=== PATIENT | male | born 1970 | race Caucasian/White ===

== ENCOUNTER 2024-02-27 14:02 | Emergency (ER) | payer OTHER ==
[~2024-02-27] VITALS: Ht 182.9 cm; Wt 81.7 kg
[2024-02-27] MEDS ORDERED: LORazepam 2 MG/ML 1ML Injection IV ONE ×2 (14:30→17:40)
[2024-02-27 15:27] LABS: Albumin, Blood 3.6 g/dL (3.4-5.0); Bilirubin, Total 0.8 mg/dL (0.1-1.0); Bun/Creatinine Ratio 12.4 (12.0-20.0); Calcium, Blood 9.1 mg/dL (8.5-10.1); Creatinine, Blood 1.13 mg/dL (0.60-1.20); Globulin, Blood 3.5 g/dL (2.2-4.0); Potassium, Blood 4.7 mmol/L (3.5-5.5); Total Protein, Blood 7.1 g/dL (6.4-8.2)
[2024-02-27] MEDS ORDERED: Ampicillin Sod/Sulbactam Sod 3 GM in NS 100 ML IV ONE (15:45)
[2024-02-27 15:57] LABS: BASOPHILS ABSOLUTE AUTO 0.07 K/mm3 (0.00-0.23); BASOPHILS PERCENT AUTO 1 % (0-2); EOSINOPHILS ABSOLUTE AUTO 0.02 K/mm3 (0.00-0.68); EOSINOPHILS PERCENT AUTO 0 % (0-6); Hematocrit 49.8 % (37.0-53.0); Hemoglobin 16.9 g/dL (13.5-17.5); IMMATURE GRAN ABSOLUTE AUTO 0.03 K/mm3 (0.00-0.10); IMMATURE GRAN PERCENT AUTO 0 % (0-1); LYMPHOCYTES ABSOLUTE AUTO 0.61 K/mm3 (0.84-5.20); LYMPHOCYTES PERCENT AUTO 5 % (21-46); MONOCYTES ABSOLUTE AUTO 0.66 K/mm3 (0.16-1.47); MONOCYTES PERCENT AUTO 6 % (4-13); Mean Corpuscular HGB 31.8 pg (26.0-34.0); Mean Corpuscular HGB Conc 33.9 g/dL (31.5-36.5); Mean Corpuscular Volume 94 fL (80-100); NEUTROPHILS ABSOLUTE AUTO 10.24 K/mm3 (1.96-9.15); NEUTROPHILS PERCENT AUTO 88 % (41-73); Platelet Count 262 K/mm3 (150-400); RDW Coefficient Variation 15.8 % (11.7-14.2); RDW Standard Deviation 54.1 fL (35.1-46.3); Red Blood Cell Count 5.31 M/mm3 (4.30-5.90); White Blood Cell Count 11.63 K/mm3 (4.00-11.30)
[2024-02-27 16:09] LABS: International Normalized Ratio 1.02; Prothrombin Time Results 10.9 Sec (9.7-11.5)
[2024-02-27] MEDS ORDERED: Acetaminophen 500 MG Tab PO ONE (16:55)
[2024-02-27] MEDS ORDERED: FentaNYL Citrate 50 MCG/ML 2 ML Injection IV ONE (16:55)
[2024-02-27] MEDS ORDERED: AMOCLA875 PO (18:32)
[2024-02-27] MEDS ORDERED: EUTHYROX50 MCG (19:45)
[2024-02-27] MEDS ORDERED: Ketorolac Tromethamine 15mg Vial IV ONE (20:10)
== END 2024-02-27 21:47 | disposition home or self-care (01) ==
LOC: ER 14:02 → EDSEX 14:02 → ER 21:47
PROVIDERS: Student in an Organized Health Care Education/Training Program
DX: S02.40FA Zygomatic fracture, left side, initial encounter for closed fracture (principal); S02.40DA Maxillary fracture, left side, initial encounter for closed fracture; S02.842A Fracture of lateral orbital wall, left side, initial encounter for closed fracture; S02.32XA Fracture of orbital floor, left side, initial encounter for closed fracture; S02.632A Fracture of coronoid process of left mandible, initial encounter for closed fracture; F10.129 Alcohol abuse with intoxication, unspecified; I10 Essential (primary) hypertension; Z88.5 Allergy status to narcotic agent; Y04.8XXA Assault by other bodily force, initial encounter
CPT/HCPCS: 70450; 70486; 72125; 80053; 80320; 85025; 85610; 85730; 96365; 96375; 96376; 99284-25; A9270; J0295; J1885; J2060; J3010

== ENCOUNTER 2024-03-01 17:24 | Emergency (ER) | payer OTHER ==
[~2024-03-01] VITALS: Ht 182.9 cm; Wt 95.2 kg
[~2024-03-01 17:24] MED LIST: AMOCLA875 PO; EUTHYROX50 MCG
[2024-03-01] MEDS ORDERED: Fluorescein Sod 1MG Opth Strips LEFTEYE ONE (19:40)
[2024-03-01] MEDS ORDERED: Ketorolac Tromethamine 10 MG Tab PO ONE (20:00)
== END 2024-03-01 20:44 | disposition home or self-care (01) ==
LOC: ER 17:24
DX: H53.8 Other visual disturbances (principal); F17.210 Nicotine dependence, cigarettes, uncomplicated; Z79.899 Other long term (current) drug therapy; Z88.5 Allergy status to narcotic agent
CPT/HCPCS: 99284; A9270

== ENCOUNTER 2024-03-02 05:28 | Inpatient (IN) | payer OTHER ==
[2024-03-02] VITALS (16 sets, daily range): BP systolic 145–173; BP diastolic 83–119
[~2024-03-02] VITALS: Ht 182.9 cm; Wt 62.4 kg
[2024-03-02] MEDS ORDERED: NS 1,000 ML IV SCH ×2 (07:45→11:55)
[2024-03-02] MEDS ORDERED: Mag Hydrox/AL Hydrox/Simeth 30 ML UDC PO ONE (07:45)
[2024-03-02] MEDS ORDERED: Famotidine 10 MG/ML 2ML Vial IV ONE (07:45)
[2024-03-02] MEDS ORDERED: Ketorolac Tromethamine 30mg Vial IV ONE (07:45)
[2024-03-02] MEDS ORDERED: Ondansetron HCl 2 MG / ML 2ML Vial IV ONE (07:45)
[2024-03-02] MEDS ORDERED: Folic Acid 1 MG TAB PO ONE (07:50)
[2024-03-02] MEDS ORDERED: Thiamine HCl 100 MG Tab PO ONE (07:50)
[2024-03-02 09:21] LABS: BASOPHILS ABSOLUTE AUTO 0.06 K/mm3 (0.00-0.23); BASOPHILS PERCENT AUTO 0 % (0-2); EOSINOPHILS ABSOLUTE AUTO 0.01 K/mm3 (0.00-0.68); EOSINOPHILS PERCENT AUTO 0 % (0-6); Hematocrit 44.9 % (37.0-53.0); Hemoglobin 15.8 g/dL (13.5-17.5); IMMATURE GRAN ABSOLUTE AUTO 0.05 K/mm3 (0.00-0.10); IMMATURE GRAN PERCENT AUTO 0 % (0-1); LYMPHOCYTES ABSOLUTE AUTO 1.17 K/mm3 (0.84-5.20); LYMPHOCYTES PERCENT AUTO 8 % (21-46); MONOCYTES ABSOLUTE AUTO 1.66 K/mm3 (0.16-1.47); MONOCYTES PERCENT AUTO 11 % (4-13); Mean Corpuscular HGB 32.3 pg (26.0-34.0); Mean Corpuscular HGB Conc 35.2 g/dL (31.5-36.5); Mean Corpuscular Volume 92 fL (80-100); Mean Platelet Volume 9.4 fL (9.1-12.4); NEUTROPHILS ABSOLUTE AUTO 11.81 K/mm3 (1.96-9.15); NEUTROPHILS PERCENT AUTO 80 % (41-73); Platelet Count 258 K/mm3 (150-400); RDW Coefficient Variation 15.8 % (11.7-14.2); RDW Standard Deviation 53.1 fL (35.1-46.3); Red Blood Cell Count 4.89 M/mm3 (4.30-5.90); White Blood Cell Count 14.76 K/mm3 (4.00-11.30)
[2024-03-02 09:59] LABS: Albumin, Blood 3.9 g/dL (3.4-5.0); Albumin/Globulin Ratio 1.1 (0.8-1.8); Bun/Creatinine Ratio 19.3 (12.0-20.0); Calcium, Blood 9.7 mg/dL (8.5-10.1); Creatinine, Blood 1.09 mg/dL (0.60-1.20); Globulin, Blood 3.4 g/dL (2.2-4.0); Magnesium, Blood 2.2 mg/dL (1.6-2.4); Potassium, Blood 4.2 mmol/L (3.5-5.5); Total Protein, Blood 7.3 g/dL (6.4-8.2)
[2024-03-02] MEDS ORDERED: Aspirin 81 MG Chew PO ONE (10:15)
[2024-03-02] MEDS ORDERED: Nitroglycerin 1 INCH/GM PKT TOP ONE (10:25)
[2024-03-02] MEDS ORDERED: Diazepam 5 MG / ML 2ML SYR IV ONE (10:25)
[2024-03-02] MEDS ORDERED: Buprenorphine HCL/Naloxone HCL 8MG-2MG Tab SL ONE (10:25)
[2024-03-02 11:15] LABS: Anti-Xa UFH, PHA Monitoring <0.10 IU/mL; Prothrombin Time Results 10.7 Sec (9.7-11.5)
[2024-03-02] MEDS ORDERED: Heparin Sodium 5000 Units/ML 1ML MDV IV ONE (11:30)
[2024-03-02] MEDS ORDERED: Heparin Sodium,Porcine/0.5 NS 500 ML IV SCH (11:30)
[2024-03-02] MEDS ORDERED: FLU VACC TS2024-25(6MOS UP)/PF 45 MCG/0.5 ML SYRINGE IM PRN (11:50)
[2024-03-02] MEDS ORDERED: Magnesium Hydroxide Conc 10 ML UDC PO PRN (11:50)
[2024-03-02] MEDS ORDERED: Bisacodyl 10 MG Supp PR PRN (11:50)
[2024-03-02] MEDS ORDERED: LORazepam 2 MG/ML 1ML Injection IV PRN ×5 (12:00→14:25)
[2024-03-02] MEDS ORDERED: Folic Acid 1 MG in NS 50 ML IV SCH (12:13)
[2024-03-02] MEDS ORDERED: Thiamine HCl 100 MG in NS 50 ML IV SCH (12:13)
[2024-03-02] MEDS ORDERED: Pantoprazole Sodium 40 MG Injection IV SCH (13:13)
[2024-03-02 13:41] LABS: U Amphetamine Screen Not Detected; U Barbituate Screen DETECTED; U Benzodiazapine Screen DETECTED; U Buprenorphine Screen DETECTED; U Cannabinoids Screen Not Detected; U Cocaine Screen Not Detected; U Methadone Screen Not Detected; U Methamphetamine Screen Not Detected; U Opiates Screen Not Detected; U Oxycodone Screen Not Detected; U Phencyclidine Screen Not Detected
[2024-03-02] MEDS ORDERED: Buprenorphine HCL/Naloxone HCL 8MG-2MG Tab SL SCH (14:00)
[2024-03-02] MEDS ORDERED: Thiamine HCl 100 MG Tab PO SCH (16:35)
[2024-03-02] MEDS ORDERED: Folic Acid 1 MG TAB PO SCH (16:35)
--- NOTE | 2024-03-02 18:29 | NUR ---
SHIFT ASSESSMENT Pt to floor from ED with 1:1. Heparin gtt continued. Medicated per MAY. Placed on 2L NC.
--- NOTE | 2024-03-02 20:57 | NUR ---
ASSUMED CARE AT APPROX 1910 PATIENT IS ALERT AND ORIENTED X3, UNSURE OF DATE. CIWA 15 DUE TO AGITATION, TREMORS AND SOME CONFUSION. MEDICATED PER EMAR FOR CIWA. SP02 96% ON 2L VIA NC WHILE SLEEPING. DENIES SOB. LS CLEAR. HR ST 105, BP HYPERTENSIVE AT TIMES. SYSTOLIC BPs 150s-160s. DENIES CP/PRESSURE. HEPARIN DRIP INFUSING. PATIENT INDEPENDENT WITH REPOSITIONING. SITTER AT BEDSIDE DUE TO PATIENT BEING IMPULSIVE AND A FALL RISK. SEE SHIFT ASSESSMENT FOR MORE INFORMATION
[2024-03-02] MEDS ORDERED: Sennosides 8.6 MG Tab PO SCH (21:00)
[2024-03-02] MEDS ORDERED: Docusate Sodium 100 MG Cap PO SCH (21:00)
[2024-03-03] VITALS (43 sets, daily range): BP systolic 91–191; BP diastolic 59–132
[2024-03-03 02:08] LABS: BASOPHILS ABSOLUTE AUTO 0.06 K/mm3 (0.00-0.23); BASOPHILS PERCENT AUTO 1 % (0-2); EOSINOPHILS ABSOLUTE AUTO 0.05 K/mm3 (0.00-0.68); EOSINOPHILS PERCENT AUTO 0 % (0-6); Hematocrit 41.5 % (37.0-53.0); Hemoglobin 14.2 g/dL (13.5-17.5); IMMATURE GRAN ABSOLUTE AUTO 0.05 K/mm3 (0.00-0.10); IMMATURE GRAN PERCENT AUTO 0 % (0-1); LYMPHOCYTES ABSOLUTE AUTO 0.94 K/mm3 (0.84-5.20); LYMPHOCYTES PERCENT AUTO 8 % (21-46); MONOCYTES ABSOLUTE AUTO 1.19 K/mm3 (0.16-1.47); MONOCYTES PERCENT AUTO 11 % (4-13); Mean Corpuscular HGB 32.6 pg (26.0-34.0); Mean Corpuscular HGB Conc 34.2 g/dL (31.5-36.5); Mean Corpuscular Volume 95 fL (80-100); Mean Platelet Volume 9.3 fL (9.1-12.4); NEUTROPHILS ABSOLUTE AUTO 8.99 K/mm3 (1.96-9.15); NEUTROPHILS PERCENT AUTO 80 % (41-73); Platelet Count 166 K/mm3 (150-400); RDW Coefficient Variation 15.7 % (11.7-14.2); RDW Standard Deviation 55.3 fL (35.1-46.3); Red Blood Cell Count 4.36 M/mm3 (4.30-5.90); White Blood Cell Count 11.28 K/mm3 (4.00-11.30)
[2024-03-03 02:32] LABS: Alanine Aminotransfer (ALT/SGP 198 U/L (12-78); Albumin, Blood 3.1 g/dL (3.4-5.0); Alk Phos 84 U/L (50-136); Anion Gap 9 mmol/L (3-11); Aspartate Aminotrans (AST/SGOT 219 U/L (12-37); Bilirubin, Total 1.6 mg/dL (0.1-1.0); Blood Urea Nitrogen 20 mg/dL (8-24); Bun/Creatinine Ratio 18.9 (12.0-20.0); CHOL/HDL RATIO 2.3; CO2, Blood 30 mmol/L (21-32); Calcium, Blood 8.7 mg/dL (8.5-10.1); Chloride, Blood 102 mmol/L (98-108); Cholesterol 138 mg/dL (50-200); Creatinine, Blood 1.06 mg/dL (0.60-1.20); Globulin, Blood 3.1 g/dL (2.2-4.0); Glomerular Filtration Rate 83 (60-); Glucose, Blood 106 mg/dL (70-99); HDL Cholesterol 59 mg/dL (>39); LDL/HDL RATIO 1.1; Low Density Lipoprotein Chol 62 mg/dL (0-110); Sodium, Blood 137 mmol/L (136-145); Total Protein, Blood 6.2 g/dL (6.4-8.2); Triglycerides 84 mg/dL (30-160); Very Low Density Lipoprot Chol 16 mg/dL (6-32)
[2024-03-03] MEDS ORDERED: dexmedeTOMIDine 100 ML IV SCH (03:05)
[2024-03-03] MEDS ORDERED: Dose Adjust by Pharmacy XX STA ×2 (03:12→10:00)
--- NOTE | 2024-03-03 06:23 | NUR ---
SHIFT SUMMARY PATIENT GIVEN ATIVAN FREQUENTLY THROUGH THE NIGHT, CIWA WOULD REMAIN AROUND 15, PRECEDEX STARTED. PATIENT NOW RESTING IN BED, CIWA 7. SP02 98% ON 2L VIA NC, LS CLEAR. HR SR 80s, BP STABLE. SYSTOLIC NOW 140s. PATIENT USES URINAL STANDING AT BEDSIDE WITH SBA. INDEPENDENT WITH REPOSITIONING. REMAINS IMPULSIVE AT TIMES, SITTER REMAINS AT BEDSIDE. CALL LIGHT IN REACH
[2024-03-03] MEDS ORDERED: DULoxetine HCL 60 MG Capsule DR PO SCH (09:00)
[2024-03-03] MEDS ORDERED: Nicotine 21 MG PATCH TOP SCH (09:00)
[2024-03-03] MEDS ORDERED: Peg 400/Hypromellose/Glycerin 15 DROP/ML BTL LEFTEYE PRN (14:50)
--- NOTE | 2024-03-03 18:38 | NUR ---
BELONGINGS NOTE Called [facility] in [place] per patient request. His belongings are there. Spoke with the front edger employee, explained that the patient will be in the hospital for the next several days. [facility] agreed to place the patients belongings at the desk and [facility] can collect it when he is discharged. Patient was made aware.
--- NOTE | 2024-03-03 18:41 | NUR ---
SHIFT SUMMARY Pt very cooperative this shift, CIWAs in the 20s all shift, ativan working well, precedex increased. Had to straight cath x1 for 950cc urine. heparin gtt discontinued.
--- NOTE | 2024-03-03 20:22 | NUR ---
ASSUMED CARE AT 1900 PATIENT REPSONDS TO VERBAL STIMULI, ORIENTED X2-3. CIWA 15 WHEN AWAKE AND STIMULATED. CIWA 8-9 WHEN RESTING. PRECEDEX INFUSING AND WILL MEDICATE WITH ATIVAN PER EMAR. SP02 98% ON 2L VIA NC. HR SR 70s, BP STABLE. DENIES CP/PRESSURE. CALL LIGHT IN REACH
[2024-03-04] VITALS (28 sets, daily range): BP systolic 119–147; BP diastolic 73–115
[2024-03-04 03:40] LABS: BASOPHILS ABSOLUTE AUTO 0.03 K/mm3 (0.00-0.23); BASOPHILS PERCENT AUTO 0 % (0-2); EOSINOPHILS ABSOLUTE AUTO 0.08 K/mm3 (0.00-0.68); EOSINOPHILS PERCENT AUTO 1 % (0-6); Hematocrit 41.3 % (37.0-53.0); Hemoglobin 14.1 g/dL (13.5-17.5); IMMATURE GRAN ABSOLUTE AUTO 0.07 K/mm3 (0.00-0.10); IMMATURE GRAN PERCENT AUTO 1 % (0-1); LYMPHOCYTES ABSOLUTE AUTO 0.82 K/mm3 (0.84-5.20); LYMPHOCYTES PERCENT AUTO 6 % (21-46); MONOCYTES ABSOLUTE AUTO 1.12 K/mm3 (0.16-1.47); MONOCYTES PERCENT AUTO 9 % (4-13); Mean Corpuscular HGB 32.8 pg (26.0-34.0); Mean Corpuscular HGB Conc 34.1 g/dL (31.5-36.5); Mean Corpuscular Volume 96 fL (80-100); Mean Platelet Volume 10.1 fL (9.1-12.4); NEUTROPHILS ABSOLUTE AUTO 10.88 K/mm3 (1.96-9.15); NEUTROPHILS PERCENT AUTO 84 % (41-73); NRBC ABSOLUTE 0.02 K/mm3 (0.00-0.02); NRBC Auto 0.2 /100 WBC (0.0-0.2); Platelet Count 162 K/mm3 (150-400); RDW Standard Deviation 52.7 fL (35.1-46.3)
[2024-03-04 04:03] LABS: Albumin, Blood 2.9 g/dL (3.4-5.0); Bilirubin, Total 1.3 mg/dL (0.1-1.0); Bun/Creatinine Ratio 27.8 (12.0-20.0); Calcium, Blood 9.2 mg/dL (8.5-10.1); Creatinine, Blood 0.83 mg/dL (0.60-1.20); Potassium, Blood 4.2 mmol/L (3.5-5.5); Total Protein, Blood 5.9 g/dL (6.4-8.2)
--- NOTE | 2024-03-04 06:15 | NUR ---
SHIFT SUMMARY PATIENT REMAINS ALERT AND ORIENTED X 2-3. CIWA RANGES FROM 7-15, PRECEDEX INFUSING AND ATIVAN GIVEN PER EMAR. SP02 98% ON 2L VIA NC. HR SR 70s, BP STABLE. PATIENT MADE MULTIPLE ATTEMPT TO URINATE BUT UNABLE, BLADDER SCAN SHOWED >500. VOSS CATHETER PLACED. PATIENT INDEPENDENT WITH REPOSITIONING. CALL LIGHT IN REACH AND BED ALARM ON
--- NOTE | 2024-03-04 10:29 | NUR ---
am note this rn assumed care at 0700. vital signs stable. tele on sius rhythm 60-70s. spo2 >95% on room air. precedex drip at 0.8mcg/kg/hr. patient ciwa currently 7. patient is alert and oriented to person, place, and self. patient asked how he got here and why he was here this rn explained to patient while md was in the room. see shift assessment for further detials. plan to continue medication for withdrawals.
[2024-03-04] MEDS ORDERED: Enoxaparin 40 MG/0.4 ML SYR SC SCH (10:54)
[2024-03-04] MEDS ORDERED: BUPRENORPHINE-1 EACH SL (10:57)
[2024-03-04] MEDS ORDERED: TRAZ100 PO (10:58)
[2024-03-04] MEDS ORDERED: Hydroxyzine HCl50 MG PO (11:18)
[2024-03-04] MEDS ORDERED: ACAMPROSATE CA333 MG PO (11:19)
[2024-03-04] MEDS ORDERED: FOLI1 PO (11:20)
[2024-03-04] MEDS ORDERED: CATAPRES0.1 MG PO (11:20)
[2024-03-04] MEDS ORDERED: B-1100 M1 PO (11:20)
[2024-03-04] MEDS ORDERED: CARVEDILOL25 M9 PO (11:21)
[2024-03-04] MEDS ORDERED: QUETIAPINE FUM10011 PO (11:21)
[2024-03-04] MEDS ORDERED: DULOXETINE HCL60 M1 PO (11:22)
[2024-03-04] MEDS ORDERED: GABAPENTIN600 MG PO (11:23)
[2024-03-04] MEDS ORDERED: LISI20 PO (11:23)
[2024-03-04] MEDS ORDERED: Aspir 8181 MG PO (11:24)
[2024-03-04] MEDS ORDERED: ZOLOFT50 MG PO (11:24)
[2024-03-04] MEDS ORDERED: OMEP20ER PO (11:26)
[2024-03-04] MEDS ORDERED: LEVOTHYROXINE112 M18 PO (11:27)
[2024-03-04] MEDS ORDERED: Acetaminophen 325 MG TABLET PO PRN (16:40)
[2024-03-04] MEDS ORDERED: Ibuprofen 400 MG Tab PO PRN (16:40)
--- NOTE | 2024-03-04 18:03 | NUR ---
shift summary patient vitals remain stable. patient remains on precedex and is currently at 0.6mcg/kg/hr. patient ciwa 5-11 throughout the shift. this rn noticed patient tremors tend to increase with activity. no acute changes throughout the shift. patient complained of neck pain and received tylenol for pain and upon reassessment pain free. patient is worried about having a bowel movement and this rn gave patient purne juice and coffee, plus oral medication. patient still has not had success. plan remains up to date.
[2024-03-04] MEDS ORDERED: QUEtiapine Fumarate 200 MG Tab PO SCH (21:00)
--- NOTE | 2024-03-04 21:23 | NUR ---
ASSUMED CARE AT 1900 PATIENT IS ALERT AND ORIENTED X3, UNABLE TO STATE DATE. CIWA 11, DUE TO TREMORS AND SOME ANXIETY. MEDICATED PER EMAR AND PRECEDEX INFUSING. SP02 97% ON RA, DENIES SOB. HR SR 60s, BP STABLE. DENIES CP/PRESSURE. VOSS PATENT AND DRAINING TO GRAVITY. INDEPENDENT WITH REPOSITIONING. CALL LIGHT IN REACH
[2024-03-05] VITALS (52 sets, daily range): BP systolic 97–151; BP diastolic 66–106
[2024-03-05 04:08] LABS: BASOPHILS ABSOLUTE AUTO 0.01 K/mm3 (0.00-0.23); BASOPHILS PERCENT AUTO 0 % (0-2); EOSINOPHILS ABSOLUTE AUTO 0.15 K/mm3 (0.00-0.68); EOSINOPHILS PERCENT AUTO 1 % (0-6); Hematocrit 38.5 % (37.0-53.0); Hemoglobin 13.2 g/dL (13.5-17.5); IMMATURE GRAN ABSOLUTE AUTO 0.07 K/mm3 (0.00-0.10); IMMATURE GRAN PERCENT AUTO 1 % (0-1); LYMPHOCYTES ABSOLUTE AUTO 0.77 K/mm3 (0.84-5.20); LYMPHOCYTES PERCENT AUTO 7 % (21-46); MONOCYTES ABSOLUTE AUTO 1.04 K/mm3 (0.16-1.47); MONOCYTES PERCENT AUTO 10 % (4-13); Mean Corpuscular HGB 32.3 pg (26.0-34.0); Mean Corpuscular HGB Conc 34.3 g/dL (31.5-36.5); Mean Corpuscular Volume 94 fL (80-100); Mean Platelet Volume 10.4 fL (9.1-12.4); NEUTROPHILS ABSOLUTE AUTO 8.61 K/mm3 (1.96-9.15); NEUTROPHILS PERCENT AUTO 81 % (41-73); NRBC ABSOLUTE 0.02 K/mm3 (0.00-0.02); NRBC Auto 0.2 /100 WBC (0.0-0.2); Platelet Count 163 K/mm3 (150-400); RDW Standard Deviation 51.1 fL (35.1-46.3); Red Blood Cell Count 4.09 M/mm3 (4.30-5.90); White Blood Cell Count 10.65 K/mm3 (4.00-11.30)
[2024-03-05 04:40] LABS: Albumin, Blood 2.6 g/dL (3.4-5.0); Albumin/Globulin Ratio 0.8 (0.8-1.8); Bilirubin, Total 0.9 mg/dL (0.1-1.0); Bun/Creatinine Ratio 23.6 (12.0-20.0); Calcium, Blood 9.3 mg/dL (8.5-10.1); Creatinine, Blood 0.76 mg/dL (0.60-1.20); Globulin, Blood 3.1 g/dL (2.2-4.0); Potassium, Blood 3.8 mmol/L (3.5-5.5); Total Protein, Blood 5.7 g/dL (6.4-8.2)
[2024-03-05] MEDS ORDERED: Levothyroxine Sodium 0.112 MG Tab PO SCH (06:00)
[2024-03-05] MEDS ORDERED: Pantoprazole Sodium 40 MG Tab PO SCH (06:00)
--- NOTE | 2024-03-05 06:28 | NUR ---
SHIFT SUMMARY PATIENT REMAINS ON PRECEDEX WITH PRN ATIVAN FOR CIWA UP TO 15. ORIENTED X 2-3, NOW STARTING TO HAVE SOME HALLUCINATIONS SEEING THINGS THAT ARE NOT IN THE ROOM. SP02 95% ON RA. HR SR 60s, BP STABLE. PATIENT DENIES CP/PRESSURE. VOSS PATENT AND DRAINING TO GRAVITY. CALL LIGHT IN REACH
[2024-03-05] MEDS ORDERED: Aspirin 81 MG TabEC PO SCH (09:00)
--- NOTE | 2024-03-05 09:46 | NUR ---
CARE ASSUMPTION PT A&OX3. ABLE TO STATE PLACE, WHY HES HERE. UNSURE OF DATE. AFEBRILE. SP02>90% ON RA. TELEMETRY SHOWS NSR, HR 70'S. VOSS CATHETER DRAINING DARK YELLOW URINE TO GRAVITY. PT C/O 08/10 SHOULDER PAIN. MEDICATED W/ TYLENOL PER EMAR. MD DIA IN ROOM, DISCUSSED PAIN MANAGEMENT. CIWA 9, MEDICATED W/ ATIVAN PER EMAR. CALL LIGHT IN REACH.
[2024-03-05] MEDS ORDERED: TraMADol HCl 50 MG Tab PO PRN (11:00)
--- NOTE | 2024-03-05 16:37 | NUR ---
SHIFT SUMMARY NO ACUTE CHANGES SINCE CARE ASSUMPTION. PT COOPERATIVE WITH CARE. PRECEDEX REMAINS INFUSING AT 0.8, RATE UNCHANGED. CIWAS RANGE BETWEEN 6-11. ATIVAN PER EMAR AND CIWA. VOSS CATHETER DRAINING TO GRAVITY, ENCOURAGED FLUID INTAKE T/O SHIFT. NO BM THIS SHIFT. PASTORAL CARE IN ROOM THIS AFTERNOON. CALL LIGHT IN REACH.
--- NOTE | 2024-03-05 16:56 | NUR ---
Pt. is drowsy, but welcomes my visit. Pt. displayed evidence of pleasanty withdrawing, so a short life review was able to take place. Pt. verbalized that home for him was in [place], [place]. Listen with empathy and a calming presence. Pt. welcomed prayer. Prayed for Pt. Pt. verbalized gratitude for the spiritual care visit.
[2024-03-05 19:28] LABS: HEPATITIS A ANTIBODY, IGM Negative (Negative); HEPATITIS B CORE ANTIBODY, IGM Negative (Negative); HEPATITIS B SURFACE ANTIGEN Negative (Negative); HEPATITIS C AB CIA INTERP Negative (Negative); HEPATITIS C ANTIBODY CIA INDEX 0.02 IV
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
[2024-03-06] VITALS (34 sets, daily range): BP systolic 104–173; BP diastolic 74–116
[2024-03-06] MEDS ORDERED: PHENobarbital Sodium 65MG / ML 1ML Vial IV PRN (01:15)
[2024-03-06 03:40] LABS: BASOPHILS ABSOLUTE AUTO 0.04 K/mm3 (0.00-0.23); BASOPHILS PERCENT AUTO 0 % (0-2); EOSINOPHILS ABSOLUTE AUTO 0.22 K/mm3 (0.00-0.68); EOSINOPHILS PERCENT AUTO 2 % (0-6); Hematocrit 37.8 % (37.0-53.0); Hemoglobin 13.2 g/dL (13.5-17.5); IMMATURE GRAN ABSOLUTE AUTO 0.05 K/mm3 (0.00-0.10); IMMATURE GRAN PERCENT AUTO 1 % (0-1); LYMPHOCYTES ABSOLUTE AUTO 0.81 K/mm3 (0.84-5.20); LYMPHOCYTES PERCENT AUTO 8 % (21-46); MONOCYTES ABSOLUTE AUTO 0.98 K/mm3 (0.16-1.47); MONOCYTES PERCENT AUTO 10 % (4-13); Mean Corpuscular HGB 33.3 pg (26.0-34.0); Mean Corpuscular HGB Conc 34.9 g/dL (31.5-36.5); Mean Corpuscular Volume 96 fL (80-100); Mean Platelet Volume 9.5 fL (9.1-12.4); NEUTROPHILS ABSOLUTE AUTO 7.59 K/mm3 (1.96-9.15); NEUTROPHILS PERCENT AUTO 78 % (41-73); Platelet Count 209 K/mm3 (150-400); RDW Standard Deviation 52.1 fL (35.1-46.3); Red Blood Cell Count 3.96 M/mm3 (4.30-5.90); White Blood Cell Count 9.69 K/mm3 (4.00-11.30)
[2024-03-06 04:20] LABS: Albumin, Blood 2.7 g/dL (3.4-5.0); Albumin/Globulin Ratio 0.8 (0.8-1.8); Bilirubin, Total 0.7 mg/dL (0.1-1.0); Bun/Creatinine Ratio 21.1 (12.0-20.0); Calcium, Blood 9.3 mg/dL (8.5-10.1); Creatinine, Blood 0.95 mg/dL (0.60-1.20); Globulin, Blood 3.4 g/dL (2.2-4.0); Magnesium, Blood 1.9 mg/dL (1.6-2.4); Potassium, Blood 3.9 mmol/L (3.5-5.5); Total Protein, Blood 6.1 g/dL (6.4-8.2)
--- NOTE | 2024-03-06 06:19 | NUR ---
PT SUMMARY PT HAS BEEN WITHDRAWING FROM ALCOHOL SEVERELY THROUGHOUT THE NIGHT. PT CIWA RANGED FROM 11-21 TONIGHT. ATIVAN WAS GIVEN SEVERAL TIMES ALONG WITH PRECEDEX. DDR. MARK AND DR. MONTESINOS WAS NOTIFIED. DR. MONTESINOS ORDERED PHENOBARBITAL WHICH HAS HELPED SIGNIFICANTLY. PT IS STILL VERY CONFUSED, BUT STILL FOLLOWS COMMANDS AND IS APPROPRIATE. NO OTHER ACUTE EVENTS TO REPORT BEDSIDES THE ALCOHOL WITHDRAWS. PLAN OF CARE CONTINUED.
--- NOTE | 2024-03-06 20:25 | NUR ---
THIS RN ASSUMED CARE OF PT AT 1900. PT IS ALERT AND ORIENTED X4, FOLLOWING COMMANDS AND REDIRECTABLE. PT HAD A GOOD DAY WITH DAY SHIFT PER GLADIS RN. PT HEART RATE NSR IN THE 60-70s, PT DENIES CHEST PAIN, BLOOD PRESSURE STABLE AT 128/90. PT IS ON PRECEDEX WHICH SEEMS TO BE THERAPEUTIC AT 1.2. PT SOUNDS CLEAR THROUGHOUT, ON ROOM AIR SATTING >95%, PT DENIES SHORTNESS OF BREATHE. NO OTHER INTERVENTIONS AT THIS TIME. PLAN OF CARE CONTINUED. CURRENT CIWA IS 7.
[2024-03-07] VITALS (29 sets, daily range): BP systolic 109–172; BP diastolic 70–119
--- NOTE | 2024-03-07 00:11 | NUR ---
AROUND 2315 ON 03/06/24, PT WAS SITTING UP IN BED CUSSING AT THIS RN AND SAYING "THIS IS BULLSHIT" AND "I AM STARTING TO GET FUCKING PISSED". THIS RN WAS ABLE TO CALM PT DOWN, AND DO AN ALCOHOL WITHDRAWL ASSESSMENT, PT SCORED A 17 AND THIS RN GAVE PHENOBARBITAL PER EMAR. PT IS NOW CURRENTLY RELAXED AND SLEEPING PEACEFULLY IN BED. WILL MONITOR PT EVERY HOUR.
[2024-03-07] MEDS ORDERED: HydrALAZINE HCl 20 MG / ML 1ML Vial IV PRN (03:35)
[2024-03-07 03:43] LABS: BASOPHILS ABSOLUTE AUTO 0.05 K/mm3 (0.00-0.23); BASOPHILS PERCENT AUTO 1 % (0-2); EOSINOPHILS ABSOLUTE AUTO 0.24 K/mm3 (0.00-0.68); EOSINOPHILS PERCENT AUTO 3 % (0-6); Hemoglobin 13.5 g/dL (13.5-17.5); IMMATURE GRAN ABSOLUTE AUTO 0.07 K/mm3 (0.00-0.10); IMMATURE GRAN PERCENT AUTO 1 % (0-1); LYMPHOCYTES ABSOLUTE AUTO 0.85 K/mm3 (0.84-5.20); LYMPHOCYTES PERCENT AUTO 10 % (21-46); MONOCYTES ABSOLUTE AUTO 1.15 K/mm3 (0.16-1.47); MONOCYTES PERCENT AUTO 13 % (4-13); Mean Corpuscular HGB 32.8 pg (26.0-34.0); Mean Corpuscular HGB Conc 34.6 g/dL (31.5-36.5); Mean Corpuscular Volume 95 fL (80-100); Mean Platelet Volume 9.5 fL (9.1-12.4); NEUTROPHILS ABSOLUTE AUTO 6.32 K/mm3 (1.96-9.15); NEUTROPHILS PERCENT AUTO 73 % (41-73); Platelet Count 253 K/mm3 (150-400); RDW Coefficient Variation 15.3 % (11.7-14.2); RDW Standard Deviation 53.1 fL (35.1-46.3); Red Blood Cell Count 4.11 M/mm3 (4.30-5.90); White Blood Cell Count 8.68 K/mm3 (4.00-11.30)
[2024-03-07 03:51] LABS: Albumin, Blood 2.7 g/dL (3.4-5.0); Albumin/Globulin Ratio 0.8 (0.8-1.8); Bilirubin, Total 0.6 mg/dL (0.1-1.0); Calcium, Blood 9.3 mg/dL (8.5-10.1); Globulin, Blood 3.5 g/dL (2.2-4.0); Potassium, Blood 4.1 mmol/L (3.5-5.5); Total Protein, Blood 6.2 g/dL (6.4-8.2)
--- NOTE | 2024-03-07 05:30 | NUR ---
PT SUMMARY PT IS IN BED WATCHING TV, PT DID END UP GETTING A COUPLE HOURS OF SLEEP AND IS BEING VERY APPROPRIATE. NO OTHER EVENTS TO REPORT OVERNIGHT BESIDES THE OTHER NURSES NOTE ABOUT WHAT HAPPENED AT 2330. PLAN OF CARE CONTINUED.
[2024-03-07] MEDS ORDERED: Carvedilol 25 MG Tab PO SCH (08:00)
[2024-03-08] VITALS (14 sets, daily range): BP systolic 111–176; BP diastolic 77–114
[2024-03-08 05:34] LABS: BASOPHILS ABSOLUTE AUTO 0.04 K/mm3 (0.00-0.23); BASOPHILS PERCENT AUTO 0 % (0-2); EOSINOPHILS ABSOLUTE AUTO 0.26 K/mm3 (0.00-0.68); EOSINOPHILS PERCENT AUTO 3 % (0-6); Hematocrit 41.1 % (37.0-53.0); Hemoglobin 14.1 g/dL (13.5-17.5); IMMATURE GRAN ABSOLUTE AUTO 0.07 K/mm3 (0.00-0.10); IMMATURE GRAN PERCENT AUTO 1 % (0-1); LYMPHOCYTES ABSOLUTE AUTO 0.98 K/mm3 (0.84-5.20); LYMPHOCYTES PERCENT AUTO 11 % (21-46); MONOCYTES ABSOLUTE AUTO 1.23 K/mm3 (0.16-1.47); MONOCYTES PERCENT AUTO 14 % (4-13); Mean Corpuscular HGB Conc 34.3 g/dL (31.5-36.5); Mean Corpuscular Volume 96 fL (80-100); Mean Platelet Volume 9.7 fL (9.1-12.4); NEUTROPHILS ABSOLUTE AUTO 6.43 K/mm3 (1.96-9.15); NEUTROPHILS PERCENT AUTO 71 % (41-73); Platelet Count 295 K/mm3 (150-400); RDW Coefficient Variation 15.4 % (11.7-14.2); RDW Standard Deviation 54.5 fL (35.1-46.3); Red Blood Cell Count 4.27 M/mm3 (4.30-5.90); White Blood Cell Count 9.01 K/mm3 (4.00-11.30)
[2024-03-08 06:07] LABS: Albumin, Blood 2.8 g/dL (3.4-5.0); Albumin/Globulin Ratio 0.8 (0.8-1.8); Bilirubin, Total 0.5 mg/dL (0.1-1.0); Bun/Creatinine Ratio 14.2 (12.0-20.0); Calcium, Blood 9.2 mg/dL (8.5-10.1); Creatinine, Blood 1.13 mg/dL (0.60-1.20); Globulin, Blood 3.5 g/dL (2.2-4.0); Potassium, Blood 3.9 mmol/L (3.5-5.5); Total Protein, Blood 6.3 g/dL (6.4-8.2)
[2024-03-08] MEDS ORDERED: LORazepam 1 MG Tab PO PRN ×2 (08:55)
[2024-03-08] MEDS ORDERED: CloNIDine 0.1 MG Tab PO SCH (09:00)
--- NOTE | 2024-03-08 10:22 | NUR ---
TRANSFER NOTE PT GOT TO ROOM AT 1000. PT A&OX4. PT REPORTS ANXIETY AND TREMORS. GAVE PT PRN ATIVAN. PT TRANSFERED FROM WHEELCHAIR TO BED IN ROOM. PT ADMITTED FOR N-STEMI. PT REPORTS HEAD PAIN, MEDICATED PER EMAR. PT ORIENTED TO ROOM AND CALL LIGHT, SKIN CHECK COMPLETED WITH SHA [place].
--- NOTE | 2024-03-08 10:30 | NUR ---
PT ALERT AND ORIENTED THIS MORNING. A BIT ANXIOUS BUT OTHERWISE POLITE AND COOPERATIVE. HYPERTENSIVE AND MILDY TACHYCARDIC IN THE LOW 100S. PROVIDER NOTIFIED AND CLONIDINE WAS ADDED TO EMAR. ATIVAN X1 ADMINISTERED FOR CIWA 9. REASSESSMENT CIWA WAS 4. SAFETY, COMFORT, HYGIENE ADDRESSED. REPORT GIVEN TO SWETA AT 0943, PT TRANSFERRED WITH ALL IN-ROOM PERSONAL BELONGINGS TO ROOM 301 BY RN VIA WHEEL CHAIR AT 0950.
--- NOTE | 2024-03-08 12:29 | NUR ---
NOTE PT HAD A 21 CIWA SCORE. PT REQUESTED IV ATIVAN. GAVE PT 2MG OF PO ATIVAN AT 1017. PT STATED "IT DIDN'T FEEL AFFECTIVE" CALLED DR. GOINS. REPORTED CIWA SCORE AND REQUESTED IV ATIVAN, STATED TO GIVE A ONE TIME ORDER OF 1MG IV ATIVAN. DR. GOINS STATED SHE WILL CHECK ON PT SOON.
[2024-03-08] MEDS ORDERED: LORazepam 2 MG/ML 1ML Injection IV ONE (12:40)
[2024-03-08] MEDS ORDERED: LORazepam 2 MG/ML 1ML Injection IV PRN (12:55)
--- NOTE | 2024-03-08 18:23 | NUR ---
SHIFT SUMMARY PT A&OX4. PT ADMITTED DUE TO NSTEMI. PT REPORTS NO CHEST PAIN, PT ON TELE. PT REPORTS PAIN WHERE BRUISING IS ON HEAD AND SHOULDER. PT LAST CIWA WAS 18. PT RECEIVED 2M OF IV ATIVAN. PT REPORTS SOME IMPROVEMENT WITH IV ATIVAN. PT INDEPENDENT IN ROOM. PT EATS ADEQUATE. PT REPORTS BEING ANXIOUS, PACES IN ROOM. BLOOD PRESSURES STILL ELEVATED. MONITORING BLOOD PRESSURES EVERY 4 HOURS. PT IN BED. BED AT LOWEST POSITION, PT CALLS APPROPRIATE. CALL LIGHT IN REACH.
[2024-03-09 03:53] VITALS: BP 134/85
--- NOTE | 2024-03-09 04:25 | NUR ---
SHIFT SUMMARY PATIENT IS ALERT AND ORIENTED. PATIENT HAS HAD NO ACUTE EVENTS THIS SHIFT. PATIENT IS WITHDRAWING FROM ETOH. CIWAS HAVE BEEN TRENDING DOWNWARD. MEDICATED PER EMAR. PATIENT HAS REPORTED HEADACHE PAIN AND MEDICATED PER EMAR. PATIENT HAS NOT REPORTED NAUSEA, SOB OR VOMITTING THIS SHIFT. PATIENT HAS BEEN IND THIS SHIFT. PATIENT HAS BEEN NPO FOR POSSIBLE STRESS TEST TODAY. BED IN LOCKED AND LOWEST POSITION. CALL LIGHT IN PLACE.
[2024-03-09 06:05] LABS: BASOPHILS ABSOLUTE AUTO 0.06 K/mm3 (0.00-0.23); BASOPHILS PERCENT AUTO 1 % (0-2); EOSINOPHILS ABSOLUTE AUTO 0.25 K/mm3 (0.00-0.68); EOSINOPHILS PERCENT AUTO 3 % (0-6); Hematocrit 39.7 % (37.0-53.0); Hemoglobin 13.6 g/dL (13.5-17.5); IMMATURE GRAN ABSOLUTE AUTO 0.08 K/mm3 (0.00-0.10); IMMATURE GRAN PERCENT AUTO 1 % (0-1); LYMPHOCYTES ABSOLUTE AUTO 1.26 K/mm3 (0.84-5.20); LYMPHOCYTES PERCENT AUTO 15 % (21-46); MONOCYTES PERCENT AUTO 17 % (4-13); Mean Corpuscular HGB 33.7 pg (26.0-34.0); Mean Corpuscular HGB Conc 34.3 g/dL (31.5-36.5); Mean Corpuscular Volume 98 fL (80-100); Mean Platelet Volume 8.9 fL (9.1-12.4); NEUTROPHILS ABSOLUTE AUTO 5.32 K/mm3 (1.96-9.15); NEUTROPHILS PERCENT AUTO 64 % (41-73); Platelet Count 305 K/mm3 (150-400); RDW Coefficient Variation 15.4 % (11.7-14.2); RDW Standard Deviation 56.2 fL (35.1-46.3); Red Blood Cell Count 4.04 M/mm3 (4.30-5.90); White Blood Cell Count 8.37 K/mm3 (4.00-11.30)
[2024-03-09 06:25] LABS: Albumin, Blood 2.9 g/dL (3.4-5.0); Albumin/Globulin Ratio 0.9 (0.8-1.8); Bilirubin, Total 0.5 mg/dL (0.1-1.0); Bun/Creatinine Ratio 13.8 (12.0-20.0); Creatinine, Blood 1.16 mg/dL (0.60-1.20); Globulin, Blood 3.4 g/dL (2.2-4.0); Potassium, Blood 3.8 mmol/L (3.5-5.5); Total Protein, Blood 6.3 g/dL (6.4-8.2)
[2024-03-09 07:15] VITALS: BP 145/97
[2024-03-09] MEDS ORDERED: LORazepam 2 MG Tab PO PRN (11:35)
[2024-03-09 15:11] VITALS: BP 137/84
[2024-03-09 17:59] VITALS: BP 158/103
--- NOTE | 2024-03-09 18:07 | NUR ---
SHIFT SUMMARY PT A&OX4. PT ADMITTED DUE TO NSTEMI. PT REPORTS NO CHEST PAIN OR DISCOMFORT. LAST CIWA WAS 14. PT TRANSITIONED TO PO ATIVAN TODAY. PT CIWA OF 14 DUE TO TREMORS/SWEATS/HEADACHE/AGITATION/ANXIETY. LAST BP WAS 158/103. PT GIRLFRIEND VISITED TODAY. PT PLAN IS FOR PT TO DO STRESS TEST IN TWO PARTS, PT HAD PART ONE TODAY. PT WILL HAVE NO CAFFEINE POST 1900 AND WILL BE NPO AT MIDNIGHT FOR STRESS TEST TOMORROW. STRESS TEST WAS DELAYED TODAY DUE TO PT REPORTS ROOM SPINNING, AND DIZZINESS. PT WAS WITHDRAWN AND REPORTED TODAYS DATE THE 6TH. PT MORE ORIENTED AND RESPONSIVE NOW, HAD CALLED DR. WEBER AND SHE CAME TO LAYS EYES ON PT. PT EATS ADEQUATE AND IS INDEPENDENT IN ROOM. PT HAS BRUISING ON HEAD AND NECK SHOULDER AND REPORTS PAIN. PAIN MANAGED PER EMAR. PT IN BED, BED IN LOWEST POSITION AND CALL LIGHT IN REACH. PT MAKES NEEDS KNOWN.
[2024-03-09 19:15] VITALS: BP 152/95
[2024-03-10] MEDS ORDERED: ZOLOFT50 MG PO (00:33)
[2024-03-10] MEDS ORDERED: LISI20 PO (00:36)
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
[2024-03-10 04:23] VITALS: BP 139/100
[2024-03-10 05:15] VITALS: BP 146/99
[2024-03-10 06:29] LABS: Bun/Creatinine Ratio 11.7 (12.0-20.0); Calcium, Blood 9.3 mg/dL (8.5-10.1); Creatinine, Blood 1.11 mg/dL (0.60-1.20); Potassium, Blood 3.5 mmol/L (3.5-5.5)
--- NOTE | 2024-03-10 06:41 | NUR ---
VOICED EARLIER WANTED TO TAKE A WALK TO RELEIVE PAIN OF SHOULDER, INSTRUCTED AT THAT TIME TO REMAIN ON FLOOR/UNIT. VOICED UNDERSTANDING. HOWEVER, AT 0630 WAS NOTED TO WALK TOWARD THE PHARMACY AND THEN LEFT THE FLOOR. CHARGE NURSE NOTIFIED AND INSTRUCTED TO START THE CLOCK RE TIMER (60 MIN) FOR AMA STATUS.
--- NOTE | 2024-03-10 07:18 | NUR ---
RETURNED TO UNIT ABOUT 1/2 HR LATER. WAS IN FORMED THAT IF HE LEFT THE UNIT FOR AN HOUR, WOULD BE AMA. AND PT VOICED UNDERSTANDING. RADIOLOGY CALLED AND STRESS TEST SCHEDULED FOR 1330, CAN HAVE BKFST. AM NURSE NOTIFIED AND PT NOTIFIED.
[2024-03-10 07:33] VITALS: BP 135/106
[2024-03-10] MEDS ORDERED: Aminophylline 250MG / 10ML 10 ML Vial ONE (13:38)
[2024-03-10] MEDS ORDERED: Regadenoson 0.4 MG/5 ML SYRINGE ONE (13:38)
[2024-03-10 15:31] VITALS: BP 154/110
[2024-03-10] MEDS ORDERED: ATOR40TA PO (17:19)
[2024-03-10] MEDS ORDERED: NICO21TP TOP (17:19)
--- NOTE | 2024-03-10 17:38 | NUR ---
DISCHARGE: PT D/C @3785 INDEPENDENTLY WITH FRIEND. PT TO DRIVE BACK HOME TO [place]. MEDICATIONS FAXED TO [facility] ON [address] IN [place]. PT AWARE TO MAKE FOLLOW-UP APPOINTMENT WITH PCP WITHIN 72 HOURS. POWERGLIDE REMOVED BY THIS RN W/O COMPLICATIONS. TELE SENT BACK. DR. SHARMA ARRIVED TO PT ROOM PRIOR TO D/C TO GIVE EXTENSIVE EDUCATION REGARDING ALCOHOL AND DRUG USE AND HOW IT COULD BE RELATED TO HEART FAILURE IF CONTINUED. PT VERBALLY AGREED AND UNDERSTOOD. NO FURTHER QUESTIONS AT TIME OF D/C.
== END 2024-03-10 17:39 | disposition home or self-care (01) | DRG 896 ==
LOC: ER 05:28 → ICUE 05:29 → MEDS 05:29 → ICUE 14:30 → MEDS 03-08 09:54
PROVIDERS: Family Medicine; Student in an Organized Health Care Education/Training Program; ADMIT Internal Medicine
DX: F10.239 Alcohol dependence with withdrawal, unspecified (principal); I21.A1 Myocardial infarction type 2; F11.20 Opioid dependence, uncomplicated; E03.9 Hypothyroidism, unspecified; I10 Essential (primary) hypertension; F10.229 Alcohol dependence with intoxication, unspecified; F41.9 Anxiety disorder, unspecified; F32.A Depression, unspecified; Z88.5 Allergy status to narcotic agent; Z79.890 Hormone replacement therapy; K70.10 Alcoholic hepatitis without ascites; Y90.8 Blood alcohol level of 240 mg/100 ml or more; F17.200 Nicotine dependence, unspecified, uncomplicated; R74.01 Elevation of levels of liver transaminase levels
CPT/HCPCS: 36415; 51702; 71046; 78452; 80048; 80053; 80061; 80074; 80320; 82947; 83735; 84100; 84443; 84484; 85025; 85520; 85610; 85730; 93005; 93010; 93017; 93306; 94760; 94762; 96361; 96374; 96375; 99285-25; A9270; A9500; C1751; J0280; J1644; J1650; J1885; J2060; J2405; J2470; J2560; J2785; J3360; J3411; J7030

== ENCOUNTER 2024-04-02 15:12 | Emergency (ER) | payer OTHER ==
[~2024-04-02] VITALS: Ht 182.9 cm; Wt 86.2 kg
[~2024-04-02 15:12] MED LIST changes: +ACAMPROSATE CA333 MG PO; +ATOR40TA PO; +Aspir 8181 MG PO; +B-1100 M1 PO; +BUPRENORPHINE-1 EACH SL; +CARVEDILOL25 M9 PO; +CATAPRES0.1 MG PO; +DULOXETINE HCL60 M1 PO; +FOLI1 PO; +GABAPENTIN600 MG PO; +Hydroxyzine HCl50 MG PO; +LEVOTHYROXINE112 M18 PO; +LISI20 PO; +NICO21TP TOP; +OMEP20ER PO; +QUETIAPINE FUM10011 PO; +TRAZ100 PO; +ZOLOFT50 MG PO
[2024-04-02] MEDS ORDERED: NS 1,000 ML IV SCH (15:45)
[2024-04-02] MEDS ORDERED: LORazepam 2 MG/ML 1ML Injection IV ONE ×2 (15:45→20:15)
[2024-04-02 15:52] LABS: BASOPHILS ABSOLUTE AUTO 0.07 K/mm3 (0.00-0.23); BASOPHILS PERCENT AUTO 1 % (0-2); EOSINOPHILS ABSOLUTE AUTO 0.05 K/mm3 (0.00-0.68); EOSINOPHILS PERCENT AUTO 1 % (0-6); Hematocrit 48.4 % (37.0-53.0); Hemoglobin 16.5 g/dL (13.5-17.5); IMMATURE GRAN ABSOLUTE AUTO 0.02 K/mm3 (0.00-0.10); IMMATURE GRAN PERCENT AUTO 0 % (0-1); LYMPHOCYTES ABSOLUTE AUTO 1.09 K/mm3 (0.84-5.20); LYMPHOCYTES PERCENT AUTO 18 % (21-46); MONOCYTES ABSOLUTE AUTO 0.59 K/mm3 (0.16-1.47); MONOCYTES PERCENT AUTO 10 % (4-13); Mean Corpuscular HGB Conc 34.1 g/dL (31.5-36.5); Mean Corpuscular Volume 94 fL (80-100); Mean Platelet Volume 9.3 fL (9.1-12.4); NEUTROPHILS PERCENT AUTO 70 % (41-73); Platelet Count 275 K/mm3 (150-400); RDW Coefficient Variation 15.1 % (11.7-14.2); RDW Standard Deviation 52.5 fL (35.1-46.3); Red Blood Cell Count 5.15 M/mm3 (4.30-5.90); White Blood Cell Count 6.02 K/mm3 (4.00-11.30)
[2024-04-02 16:50] LABS: Albumin, Blood 3.7 g/dL (3.4-5.0); Albumin/Globulin Ratio 1.1 (0.8-1.8); Bilirubin, Total 0.5 mg/dL (0.1-1.0); Bun/Creatinine Ratio 14.2 (12.0-20.0); Calcium, Blood 8.2 mg/dL (8.5-10.1); Creatinine, Blood 0.91 mg/dL (0.60-1.20); Globulin, Blood 3.5 g/dL (2.2-4.0); Potassium, Blood 3.9 mmol/L (3.5-5.5); Total Protein, Blood 7.2 g/dL (6.4-8.2)
[2024-04-02] MEDS ORDERED: Ondansetron HCl 2 MG / ML 2ML Vial IV ONE (17:15)
[2024-04-02] MEDS ORDERED: Famotidine 10 MG/ML 2ML Vial IV ONE (17:15)
[2024-04-02] MEDS ORDERED: Ketorolac Tromethamine 15mg Vial IV ONE (17:15)
== END 2024-04-02 22:09 | disposition home or self-care (01) ==
LOC: ER 15:12
PROVIDERS: Student in an Organized Health Care Education/Training Program
DX: R07.89 Other chest pain (principal); F10.939 Alcohol use, unspecified with withdrawal, unspecified; F41.9 Anxiety disorder, unspecified; E03.9 Hypothyroidism, unspecified; I10 Essential (primary) hypertension; Z79.82 Long term (current) use of aspirin; Z79.899 Other long term (current) drug therapy; Z88.5 Allergy status to narcotic agent
CPT/HCPCS: 71046; 80053; 80320; 84484; 85025; 93005; 93010; 96374; 96375; 96376; 99285-25; J1885; J2060; J2405; J7030

== ENCOUNTER 2024-04-04 17:42 | Inpatient (IN) | payer OTHER ==
[~2024-04-04] VITALS: Ht 195.6 cm; Wt 88.2 kg
[2024-04-04 18:58] LABS: BASOPHILS ABSOLUTE AUTO 0.08 K/mm3 (0.00-0.23); BASOPHILS PERCENT AUTO 1 % (0-2); EOSINOPHILS ABSOLUTE AUTO 0.02 K/mm3 (0.00-0.68); EOSINOPHILS PERCENT AUTO 0 % (0-6); Hematocrit 49.7 % (37.0-53.0); Hemoglobin 17.4 g/dL (13.5-17.5); IMMATURE GRAN ABSOLUTE AUTO 0.03 K/mm3 (0.00-0.10); IMMATURE GRAN PERCENT AUTO 0 % (0-1); LYMPHOCYTES ABSOLUTE AUTO 1.25 K/mm3 (0.84-5.20); LYMPHOCYTES PERCENT AUTO 10 % (21-46); MONOCYTES ABSOLUTE AUTO 1.67 K/mm3 (0.16-1.47); MONOCYTES PERCENT AUTO 13 % (4-13); Mean Corpuscular HGB 32.3 pg (26.0-34.0); Mean Corpuscular Volume 92 fL (80-100); Mean Platelet Volume 9.1 fL (9.1-12.4); NEUTROPHILS ABSOLUTE AUTO 9.82 K/mm3 (1.96-9.15); NEUTROPHILS PERCENT AUTO 76 % (41-73); Platelet Count 243 K/mm3 (150-400); RDW Coefficient Variation 14.5 % (11.7-14.2); RDW Standard Deviation 49.3 fL (35.1-46.3); Red Blood Cell Count 5.38 M/mm3 (4.30-5.90); White Blood Cell Count 12.87 K/mm3 (4.00-11.30)
[2024-04-04 19:16] LABS: Albumin/Globulin Ratio 1.1 (0.8-1.8); Bilirubin, Total 1.3 mg/dL (0.1-1.0); Bun/Creatinine Ratio 15.9 (12.0-20.0); Calcium, Blood 9.7 mg/dL (8.5-10.1); Creatinine, Blood 0.82 mg/dL (0.60-1.20); Globulin, Blood 3.7 g/dL (2.2-4.0); Total Protein, Blood 7.7 g/dL (6.4-8.2)
[2024-04-04] MEDS ORDERED: Nitroglycerin 0.4 MG SUBL SL PRN (21:35)
[2024-04-04] MEDS ORDERED: PHENobarbitaL sodium 130 MG/ML VIAL IV ONE ×2 (21:50→23:00)
[2024-04-04] MEDS ORDERED: Aspirin 325 MG Tab PO ONE (21:55)
[2024-04-04] MEDS ORDERED: LORazepam 2 MG/ML 1ML Injection IV ONE (23:20)
[2024-04-04] MEDS ORDERED: NS 1,000 ML IV SCH (23:55)
[2024-04-05] MEDS ORDERED: FLU VACC TS2024-25(6MOS UP)/PF 45 MCG/0.5 ML SYRINGE IM ONE (00:15)
[2024-04-05] MEDS ORDERED: ChlordiazePOXIDE 25 MG Cap PO PRN (00:15)
[2024-04-05] MEDS ORDERED: Ondansetron 4 MG TAB PO PRN (00:20)
[2024-04-05] MEDS ORDERED: LORazepam 2 MG/ML 1ML Injection IV PRN (00:20)
[2024-04-05] MEDS ORDERED: Magnesium Hydroxide Conc 10 ML UDC PO PRN (00:20)
[2024-04-05] MEDS ORDERED: Buprenorphine HCL/Naloxone HCL 8MG-2MG Tab SL SCH (00:26)
[2024-04-05] MEDS ORDERED: Folic Acid 1 MG in NS 50 ML IV SCH (00:32)
[2024-04-05] MEDS ORDERED: NS 1,000 ML IV ONE (00:55)
[2024-04-05] MEDS ORDERED: Lactated Ringer's 1,000 ML IV SCH (00:55)
[2024-04-05] MEDS ORDERED: Potassium Chloride 40 MEQ in NS 250 ML IV ONE (01:00)
[2024-04-05] MEDS ORDERED: Potassium Chloride 20 MEQ TabCR PO ONE ×2 (01:00→07:30)
[2024-04-05] MEDS ORDERED: NS 1,000 ML IV SCH (01:15)
[2024-04-05 05:28] LABS: BASOPHILS ABSOLUTE AUTO 0.05 K/mm3 (0.00-0.23); BASOPHILS PERCENT AUTO 0 % (0-2); EOSINOPHILS ABSOLUTE AUTO 0.08 K/mm3 (0.00-0.68); EOSINOPHILS PERCENT AUTO 1 % (0-6); Hematocrit 43.4 % (37.0-53.0); Hemoglobin 15.3 g/dL (13.5-17.5); IMMATURE GRAN ABSOLUTE AUTO 0.05 K/mm3 (0.00-0.10); IMMATURE GRAN PERCENT AUTO 0 % (0-1); LYMPHOCYTES ABSOLUTE AUTO 1.01 K/mm3 (0.84-5.20); LYMPHOCYTES PERCENT AUTO 7 % (21-46); MONOCYTES ABSOLUTE AUTO 1.37 K/mm3 (0.16-1.47); MONOCYTES PERCENT AUTO 10 % (4-13); Mean Corpuscular HGB 32.8 pg (26.0-34.0); Mean Corpuscular HGB Conc 35.3 g/dL (31.5-36.5); Mean Corpuscular Volume 93 fL (80-100); Mean Platelet Volume 9.2 fL (9.1-12.4); NEUTROPHILS ABSOLUTE AUTO 11.47 K/mm3 (1.96-9.15); NEUTROPHILS PERCENT AUTO 82 % (41-73); Platelet Count 188 K/mm3 (150-400); RDW Coefficient Variation 14.7 % (11.7-14.2); RDW Standard Deviation 50.4 fL (35.1-46.3); Red Blood Cell Count 4.66 M/mm3 (4.30-5.90); White Blood Cell Count 14.03 K/mm3 (4.00-11.30)
[2024-04-05 05:57] LABS: Albumin, Blood 3.3 g/dL (3.4-5.0); Albumin/Globulin Ratio 1.1 (0.8-1.8); Bilirubin, Total 0.8 mg/dL (0.1-1.0); Bun/Creatinine Ratio 13.5 (12.0-20.0); Calcium, Blood 8.7 mg/dL (8.5-10.1); Creatinine, Blood 0.89 mg/dL (0.60-1.20); Magnesium, Blood 1.5 mg/dL (1.6-2.4); Phosphorus, Blood 2.8 mg/dL (2.5-4.9); Potassium, Blood 3.5 mmol/L (3.5-5.5); Total Protein, Blood 6.3 g/dL (6.4-8.2)
[2024-04-05] MEDS ORDERED: Mag Sulfate 1 GM/D5% 100ML 100 ML IV STA (07:36)
[2024-04-05] MEDS ORDERED: Carvedilol 25 MG Tab PO SCH (08:00)
[2024-04-05 08:58] VITALS: BP 169/116
[2024-04-05] MEDS ORDERED: Atorvastatin 40 MG Tab PO SCH (09:00)
[2024-04-05] MEDS ORDERED: Sennosides 8.6 MG Tab PO SCH (09:00)
[2024-04-05] MEDS ORDERED: Lisinopril 20 MG Tab PO SCH (09:00)
[2024-04-05] MEDS ORDERED: Enoxaparin 40 MG/0.4 ML SYR SC SCH (09:00)
[2024-04-05] MEDS ORDERED: Thiamine HCl 100 MG Tab PO SCH (09:00)
[2024-04-05] MEDS ORDERED: Aspirin 81 MG Chew PO SCH (09:00)
[2024-04-05] MEDS ORDERED: PHENobarbital Sodium 65MG / ML 1ML Vial IV PRN (10:35)
--- NOTE | 2024-04-05 11:11 | NUR ---
PT ARRIVED IN THE ROOM FROM [facility] AT 0840A. PT ABLE TO STAND AND TRANSFER TO PCU BED. ALERT AND ORIENTED X4 PLEASANT AND COOPERATIVE. PT IS HERE FOR ETOH W/D CIWA CURRENTLY AT 14, VISIBLE TREMORS, MODERATE HEAD ACHE AND IS VERY ANXOIUS. PT RESTLESS IN BED. PT WAS MEDICATED WITH 2MG OF ATIVAN AND 50MG OF LIBRIUM, PT ASKED TO GET IN THE SHOWER AND WAS STILL FEELING VERY ANXIOUS ASKED IF HE COULD HAVE PHENOBARBITAL AGAIN PT REPORTS EFFECTIVENESS WHEN IT WAS GIVEN TO THE PATIENT LASTNIGHTS IN THE ER. DR MONTESINOS MADE AWARE ORDER FOR PRN PHENOBARB IS PLACED. PT NOW RESTING IN BED. VITALS HRR SR 80'S, SBP 160-180'S, SATS ABOVE 95% ON RA, AFEBRILE. PT TOLERATING PO AT THIS TIME. BED ALARM ON FOR SAFETY, SEIZURE PADS IN PLACE FOR SEIZURE PRECAUTIONS. CALL LIGHTS IN REACH WILL CONTINUE TO MONITOR
[2024-04-05] MEDS ORDERED: PHENobarbitaL sodium 130 MG/ML VIAL IV PRN (11:50)
[2024-04-05] MEDS ORDERED: Calcium Carbonate 500 MG Tab Chew PO PRN (12:00)
[2024-04-05] MEDS ORDERED: Mag Hydrox/Al Hydrox/Simeth 18 ML,Lidocaine 2% Viscous Soln 9 ML,Atropine/Scopalam/Hyos... PO ONE (12:00)
[2024-04-05 12:09] VITALS: BP 153/117
[2024-04-05 15:49] VITALS: BP 165/114; BP 167/129
--- NOTE | 2024-04-05 18:30 | NUR ---
PT SUMMARY; PT CIWA RANGING 7-15, PT WAS MEDICATED WITH PRN LIBRIUM, ATIVAN AND PHENOBARB. PT REPORTED PHENOBARB WORKS BEST WITH HIS TREMORS AND ANXIETY. CHEST PRESSURE WAS RELIEVED AFTER GI COCKTAIL DOSE. PT REMAINS ALERT AND ORIENTED X3-4, GETS A LITTLE CONFUSED UPON WAKING UP AFTER NAPS, PT WOKE UP AFTER LUNCH THOUGHT HE WAS AT GIRLFRIENDS HOUSE AND WAS HEARING PEOPLE TALKING, PT STARTED CHANGING TO HIS HOME CLOTHES BED ALARM WENT OFF, PT WAS REDIRECTED PT THEN APOLOGIZED. PT WAS ABLE TO GET A HOLD OF GIRLFRIEND AND WAS ABLE TO COME BY, PT PLAN TO DC HOME TO GIRLFRIENDS HOME AT THIS TIME. NO OTHER ISSUES REPORTED AT THIS TIME, PT ATE DINNER WITH NO ISSUES, PT RESTING WITH BED ALARM ON FOR SAFETY, CALL LIGHTS IN REACH WILL REPORT TO ONCOMING SHIFT
[2024-04-05 19:57] VITALS: BP 169/111
--- NOTE | 2024-04-05 20:37 | NUR ---
ASSUMPTION NOTE: THIS RN TO ASSUME CARE OF PATIENT. PATIENT IS SITTING AT THE EDGE OF BED AND ON HIS PHONE. VITAL SIGNS TAKEN AND PATIENT STABLE. PATIENT REQUESTING FOR SOME MEDICATIONS HE FEELS ANXIOUS BUT ONLY WANTS A LOW DOSE HE DOES NOT WANT TO FEEL LIKE HIS IS COMPLETELY OUT OF IT. THIS RN ASKED IF PATIENT WAS SEEING OR HEARING THINGS HE FELT WEREN'T REALLY HEAR AND PATIENT STATED "NO HE FEELS GOOD JUST HAS SOME TREMORS AN ANXIOUS IN THAT DEPARTMENT". PATIENT WAS GIVEN EVENING MEDICATIONS AND UPDATED THAT THE PLAN FOR TONIGHT WILL BE TO ONLY GIVE HIM ENOUGH MEDICATION TO ALLOW HIM TO SLEEP. WILL CONTINUE TO MONITOR.
[2024-04-06 01:29] VITALS: BP 157/143
--- NOTE | 2024-04-06 04:27 | NUR ---
SHIFT SUMMARY: PATIENT IS ALERT AND ORIENTED X4 AND COOPERATIVE WITH HIS CARE,IS ABLE TO MAKE NEEDS KNOWN. IS ON TELE SHOWING SINUS RYTHM WITH RATE IN 70'S. SATTING >92% ON ROOM AIR, EVEN AND UNLABORED RESPIRATIONS. PATIENT WAS ANXIOUS AT TIIMES THROUGOUT SHIFT WHEN WAKING UP FROM SHORT BOUTS OF NAPS AND STATED "HE FELT LIKE HE WAS HAVING A PANIC ATTACK". CIWAS WERE BELOW 8 AND WAS MEDICATED PER EMAR FOR ANXIETY. PATIENT HAD SOME SNACKS AND WAS ABLE TO REST IN SMALL INCREMENTS. THIS RN WILL CONTINUE TO MONITOR UNTIL SHIFT CHANGE AND DAY RN ASSUMES CARE.
[2024-04-06 05:01] VITALS: BP 148/114
[2024-04-06 07:30] VITALS: BP 144/116
[2024-04-06] MEDS ORDERED: Potassium Chloride 20 MEQ TabCR PO ONE (08:20)
[2024-04-06] MEDS ORDERED: Mag Sulfate 1 GM/D5% 100ML 100 ML IV STA (08:27)
[2024-04-06] MEDS ORDERED: FLUoxetine HCL 20 MG CAP PO SCH (09:00)
[2024-04-06] MEDS ORDERED: DULoxetine HCL 60 MG Capsule DR PO SCH (11:00)
[2024-04-06 11:11] VITALS: BP 152/95
[2024-04-06] MEDS ORDERED: ACAMPROSATE 666 MG PO SCH (14:00)
[2024-04-06] MEDS ORDERED: Gabapentin 300 MG Cap PO SCH (14:00)
[2024-04-06 15:41] VITALS: BP 182/118
[2024-04-06 16:40] VITALS: BP 157/118
[2024-04-06] MEDS ORDERED: Nicotine 21 MG PATCH TOP SCH (17:20)
--- NOTE | 2024-04-06 17:43 | NUR ---
PT SUMMARY; BARTOLOME LEAL HCNAGE FOR THE SHIFT CIWA HAS BEEN 2-4. PT HAD ONE DOSE OF PHENOBARB T/O SHIFT, PT STARTED ON HOME MEDS INCLUDING DULOXETINE TO HELP WITH ANXIETY. PT HAS BEEN UP AND WALKING AROUIND IN THE ROOM INDEPENDENTLY. VITALS HRR SR 70'S, SBP 140-180'S, PT TO START HOME DOSE OF CLONIDINE AT BEDTIME. PERSON FROM [facility] CAME IN AND WAS ABLE TO HAVE A CONVERSATION WITH THE PT ABOUT DISCHARGE PLAN. PT WAITING FOR GIRLFRIEND TO COME BY [place] IF AGREEABLE WITH THE PLAN POSSIBLY GOING TO [facility]. PT STARTED ON NICOTINE PATCH WELL PER PT'S REQUEST. NO OTHER ISSUES REPORTED FOR THE SHIFT, CALLS APPROPRIATELY. WILL REPORT TO ONCOMING SHIFT
[2024-04-06] MEDS ORDERED: CloNIDine 0.1 MG Tab PO SCH (21:00)
[2024-04-07 00:19] VITALS: BP 150/119
[2024-04-07 04:32] LABS: Bun/Creatinine Ratio 24.5 (12.0-20.0); Calcium, Blood 9.1 mg/dL (8.5-10.1); Creatinine, Blood 1.02 mg/dL (0.60-1.20); Magnesium, Blood 2.1 mg/dL (1.6-2.4); Potassium, Blood 4.2 mmol/L (3.5-5.5)
[2024-04-07] MEDS ORDERED: Omeprazole 20 MG CapCR PO SCH (06:00)
[2024-04-07] MEDS ORDERED: Levothyroxine Sodium 0.112 MG Tab PO SCH (06:00)
[2024-04-07 07:48] VITALS: BP 153/125
--- NOTE | 2024-04-07 07:48 | NUR ---
ASSUMPTION NOTE: THIS RN TO ASSUME CARE OF PATIENT. PATIENT SLEEPING BUT AROUSABLE. PATEINT STATED HE'S NOT AXIOUS AND DIDN'T GET TOO MUCH SLEEP LAST NIGHT. VITAL SIGNS TAKEN AND PATIENT STABLE. BED IN LOWEST POSITION AND CALL LIGHT WITHIN REACH.
--- NOTE | 2024-04-07 08:54 | NUR ---
MD AT BEDSIDE: [facility] THIS RN CLAIRIFED SOME CONFUSION WIHT ORDERS. MD TO DC SOME ORDERS AND PATIENT IS OKAY TO TAKE PHENOBARBITAL ORDERED. PATIENT NOTIFIED HE WAS FEELING SUPER SHAKY AND ANXIOUS. MD STATED WE WILL CONTINUE TO MONITOR AND TITRATE OFF THE ATIVAN.
[2024-04-07] MEDS ORDERED: Nicotine 21 MG PATCH TOP SCH (09:00)
[2024-04-07 11:33] VITALS: BP 93/63
--- NOTE | 2024-04-07 13:00 | NUR ---
PATIENT WAS SEEN BY [facility] FLIGHT ATTENDANT INFLIGHT SERVICES AND GIVEN A PACKET TO FILL OUT. ACCOUNT MANAGER B2B THAT WAS FOLLOWING THIS RN HELPED PATIENT FILL OUT THE PACKET.
[2024-04-07 15:28] VITALS: BP 125/78
--- NOTE | 2024-04-07 17:29 | NUR ---
SHIFT SUMMARY: PATIENT IS ALERT AND ORIENTED X4 AND ACTIVE IN HIS CARE, IS ABLE TO MAKE NEEDS KNOWN. SATTING >92% ON ROOM AIR, EVEN AND UNLABORED RESPIRATIONS. ON TELE SHOWING SINUS RHYTHM WITH RATE IN 70'S. PATIENT WAS MEDICATED PER EMAR FOR CIWA >8 AND WAS ABLE TO SLEEP FOR QUITE A WHILE. WAS SEEN BY [facility] SPD MANAGER AND FILLED OUT THE PAPERWORK, IS IN THE CHART. PATIENTS GIRLFRIEND CAME BY AND THEY VISITED FOR A WHILE. MD STATED TO CONTINUE TO MEDICATE PER EMAR WITH CIWA'S AND POSSIBLE DISCHARGE WITHIN THE FEW DAYS. THIS RN WILL CONTINUE TO MONITOR UNTIL SKEIN SPOOLER RN ASSUMES CARE.
[2024-04-07 21:02] VITALS: BP 120/81
--- NOTE | 2024-04-07 22:49 | NUR ---
SHIFT SUMMARY NEURO: PT UNSURE OF DATE. MOVES ALL EXTREMETIES EQUALLY. AUDITORY HALLUCINATIONS, HEADACHE AND TREMORS- SEE CIWA. CARDIAC: NORMAL SINUS IN THE 70'S. LUNGS: WNL GI/: WNL
[2024-04-07 23:39] VITALS: BP 123/80
[2024-04-08 03:31] VITALS: BP 125/84
[2024-04-08 08:03] VITALS: BP 126/78
--- NOTE | 2024-04-08 08:25 | NUR ---
MD AT BEDSIDE: MD MONTESINOS TO BEDSIDE AND TALKED TO PATIENT AND WAS NOTIFIED THAT PATIENT IS MAXED OUT PER FENCE SETTER AND PHARMACY REPORT ON MEDICATIONS ON EMAR. MD TO PLACE NEW MEDICATIONS, MAGNESIUM LEVEL WAS ORDERED FOR LAB. PATIENT NOTIFIED THAT THE NEXT STEP WOULD BE TO MOVE TOWARDS PRECEDEX IF HE FAILS THE NEW MEDICATIONS. MD NOTIFIED THAT PATIENT TALKED TO [facility] AND THE PLAN FOR HIM UPON DISCHARGE WILL BE TO GO THERE AFTERWARDS. PATIENT HAS BED IN LOWEST POSITION AND CALL LIGHT WITHIN REACH
[2024-04-08] MEDS ORDERED: ChlordiazePOXIDE 25 MG Cap PO PRN ×2 (08:35→08:40)
[2024-04-08] MEDS ORDERED: LORazepam 2 MG/ML 1ML Injection IV PRN ×2 (08:40)
[2024-04-08 12:25] VITALS: BP 120/83
[2024-04-08] MEDS ORDERED: PHENobarbital Sodium 65MG / ML 1ML Vial IV ONE (15:00)
[2024-04-08] MEDS ORDERED: PHENobarbital Sodium 65MG / ML 1ML Vial IV PRN (15:00)
[2024-04-08 15:35] VITALS: BP 121/84
--- NOTE | 2024-04-08 17:39 | NUR ---
SHIFT SUMMARY: PATIENT IS ALERT AND ORIETNED X4 AND COOPERATIVE WITH HIS CARE. IS ON TELE SHOWING SINUS RYTHM WITH RATE IN 80'S. SATTING >92% ON ROOM AIR. PATIENT MEDICATIONS WERE CHANGED PER DOCTOR ORDER, SEE EMAR FOR FURTHER DIRECTION. PATIENT WAS SEEN BY [facility] TODAY. THE PLAN WILL BE TO USE PHENO FIRST THEN LIBRIUM & ATIVAN LAST. HE WAS ABLE TO GET SOME REST TODAY AND WAS VISITED BY HIS GIRLFRIEND. THIS RN WILL CONTINUE TO MONITOR UNITL SHIFT CHANGE AND MACHINED PARTS METAL SPRAYER RN ASSUMES CARE.
[2024-04-08 20:24] VITALS: BP 123/69
[2024-04-09] VITALS (7 sets, daily range): BP systolic 102–143; BP diastolic 56–112
--- NOTE | 2024-04-09 05:47 | NUR ---
SHIFT SUMMARY PATIENT ALERT, ORIENTED x4. ABLE TO MAKE NEEDS KNOWN TO STAFF. SLOW TO RESPOND AT TIMES BUT ANSWERING APPROPRIATELY. MEDICATED PER EMAR FOR WITHDRAWAL SYMPTOMS. BP STABLE. TELE READING SR. ON RA WITH SPO2 >90%. PATIENT AMBULATING IN ROOM AND TO BATHROOM INDEPENDENTLY. NO SIGNIFICANT CHANGES DURING THE NIGHT. WILL REPORT TO DAY SHIFT RN.
[2024-04-09] MEDS ORDERED: Omeprazole 20 MG CapCR PO SCH (06:00)
[2024-04-09] MEDS ORDERED: Folic Acid 1 MG TAB PO SCH (09:00)
--- NOTE | 2024-04-09 09:00 | NUR ---
am note this rn assumed care at 0700. vital signs stable. tele sinus rhythm 70s. patient at the start of my shift is alert and oriented x4. ciwa 10. medicated per kattywa. perrla. patient is able to make needs known and independent in adls. patient denies pain, chest pain/pressure or shortness of breath. see shift assessment for further detials. md perez in to see patient and the plan for patient to discharge and go to [facility] for rehab.
--- NOTE | 2024-04-09 10:46 | NUR ---
update this rn called by Thu, banner, that patient is more tremulous and assisting patient to sit back in bed as patient lost his balance and started to stumbly but caught himself on the end of the bed and sat down. This rn reassessed patient and ciwa 28. this rn called md perez and let him know and patient ciwa. patient medicated per ciwa protocol. patient during this trying to get out of bed and stating that he has "two feet", and "everything is blurry". patient stating that "the box is moving" and this rn explained its his heart monitor and the box isnt moving but covered it up. patient stating that when he had his stumble into bed that he hit his right bottom of ribs on the bed and there is a bump. md perez notifed. patient received a total of 6mg IV ativan, 50mg PO librium, and 60mg iv phenobarbital. patient ciwa now 10, and patient is resting comfortable.
--- NOTE | 2024-04-09 17:50 | NUR ---
shift summary vitals remain stable. patient is alert and oriented to person, place, and self. tele sinus rhythm 80s. patient ciwa 10 this evening. see alcohol assessment section for further detials. patient signifcant other robbin in to see patient today and after she left patient tearful and stating " i dont want to lose her" this rn listened to the patient and encouraged him to focus on getting better and things that he can control not vs things he cant control. no acute changes since previous note. plan remains up to date
[2024-04-10] VITALS (12 sets, daily range): BP systolic 107–160; BP diastolic 67–106
[2024-04-10 05:18] LABS: Bun/Creatinine Ratio 21.1 (12.0-20.0); Calcium, Blood 9.3 mg/dL (8.5-10.1); Magnesium, Blood 2.1 mg/dL (1.6-2.4); Potassium, Blood 4.1 mmol/L (3.5-5.5)
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
--- NOTE | 2024-04-10 17:08 | NUR ---
PT'S SIGNIFICANT OTHER UPDATED ON FALL.
--- NOTE | 2024-04-10 17:31 | NUR ---
END OF SHIFT SUMMARY THE PT IS A&OX2-4, CIWAS 8-15, AND HE CAN BE IMPULSIVE AND DOES NOT CALL APPROPRIATELY. 1:1 SITTER IN THE ROOM AFTER PT FALL. SEE PREVIOUS NOTE. THE PT HAD BEEN MEDICATED PER EMAR FOR CIWAS. HE HAS BEEN ON RA W/ SP02 >93%. BP STABLE. ON TELE HE IS SR 80'S. THE PT DENIES ANY CURRENT PHYSICAL PAIN, BUT CONTINUES TO HAVE A HEADACHE. MEDS PER EMAR. BED IN LOW, 1:1 SITTER IN THE ROOM, BED ALARM INTACT. SEE NOTES FOR ANY UPDATES.
--- NOTE | 2024-04-10 18:32 | NUR ---
cigarette package examiner reported that the pt was using nicotine pouches in the room and that pt's significant other brought them in. Nicotine Pouches confinscated and in lock box. Dr. perez made aware.
[2024-04-11] VITALS (8 sets, daily range): BP systolic 91–135; BP diastolic 54–86
--- NOTE | 2024-04-11 05:03 | NUR ---
SHIFT SUMMARY PT DROWSY BUT AROUSABLE. WHEN WOKEN, RESPONDS APPROPRIATELY TO ORIENTATION QUESTIONS. CONTINUES TO EXHIBIT SIGNIFICANT WITHDRAWAL SYMPTOMS WHILE ALERT. MEDICATED PER EMAR. THIS RN CONFISCATED MULTIPLE CANS OF NICOTINE POUCHES FROM PATIENT ROOM THIS SHIFT, STORED IN PATIENT MED BIN. A PLETHORA OF LOOSE/USED NICOTINE POUCHES FOUND IN PATIENT'S BED AND ON THE FLOOR IN PATIENT'S ROOM, DISPOSED OF BY THIS RN.
--- NOTE | 2024-04-11 08:04 | NUR ---
0600 PRILOSEC AND LEVOTHYROXINE GIVEN AT 0740. MEDICATIONS WERE UNSCANNABLE DUE TO BEING LOCKED IN PREVIOUS RN PROFILE. DISCUSSED WITH CONTINUOUS IMPROVEMENT DIRECTOR. WORKING WITH IT TO GET IT UNLOCKED.
--- NOTE | 2024-04-11 17:41 | NUR ---
SHIFT SUMMARY THE PT IS A&OX2-3, CIWAS FROM 1-13. THE PT HAS BEEN MEDICATED PER EMAR. THIS AFTERNOON HE WOKE UP FROM A LONG NAP AND HAS BEEN MORE CONFUSED AND FORGETFUL. ANXIOUS AND IMPULSIVE. 1:1 SITTER REMAINS IN THE ROOM. HE HAS BEEN ON RA AND SPOT CHECKED MULTIPLE TIMES T/O THE SHIFT WHILE AWAKE AND SLEEPING. SP02 >93%. HE DENIES ANY SOB. ON TELE HE HAS BEEN SR 60'S-90'S. BP SOFT THIS AM, BUT HAS IMPROVED AND REMAINS STABLE. HE DENIES ANY ANGINA OR CHEST PRESSURE. NO ACUTE EVENTS THIS SHIFT. SEE NOTES FOR UPDATES.
--- NOTE | 2024-04-12 00:18 | NUR ---
ASSUMPTION OF CARE THIS RN ASSUMED CARE OF PATIENT AT 1900. PT A&O X3-4. UNSURE OF EXACT DATE BUT ANSWERED OTHER QUESTIONS APPROPRIATELY. CIWA RANGING FROM 4-9. MEDICATING PER EMAR. SR ON MONITOR WITH HR 60'S. SOFT BP AT MIDNIGHT VITALS WITH SBP 90'S, MAP >65. PT DENIES CHEST PAIN/PRESSURE. ON RA WITH SPO2 >92%. ST ALARM NOTED ON TELE. EKG DONE. MD LISA NOTIFIED; NO NEW ORDERS AT THIS TIME. PT UP TO BSC WITH SBA WITH URINAL. BED ALARM ON. PT IMPULSIVE. 1:1 SITTER LEFT AT MIDNIGHT. BED IN LOWEST POSITION AND CALL LIGHT WITHIN REACH.
[2024-04-12 03:22] VITALS: BP 117/70
[2024-04-12 04:01] LABS: Bun/Creatinine Ratio 19.1 (12.0-20.0); Calcium, Blood 9.3 mg/dL (8.5-10.1); Creatinine, Blood 1.36 mg/dL (0.60-1.20); Magnesium, Blood 2.2 mg/dL (1.6-2.4)
--- NOTE | 2024-04-12 04:36 | NUR ---
SHIFT SUMMARY SEE PREVIOUS NOTE PT MEDICATED PER EMAR FOR WITHDRAWAL/CIWA. PT WITH C/O TREMORS, NAUSEA, HEADACHE, ANXIETY, AND AT TIMES PT IS PARANOID ABOUT WHERE HE IS AND STATES "I DONT BELIEVE I AM IN THE HOSPITAL". MOSTLY REDIRECTABLE. PT UNSTEADY ON HIS FEET. USED URINAL AT BEDSIDE AND VOIDED ON FLOOR BEFORE FALLING BACKWARDS INTO A SITTING POSITION ONTO THE BED. PT EDUCATED ABOUT WHY IT IS UNSAFE FOR HIM TO WALK AROUND WITHOUT ASSISTANCE. PT UNINTERESTED IN EDUCATION. TEARFUL AT TIMES. VSS. BED IN LOWEST POSITION AND CALL LIGHT WITHIN REACH. THIS RN WILL REPORT TO ONCOMING DAYSHIFT RN.
[2024-04-12 07:44] VITALS: BP 136/98
--- NOTE | 2024-04-12 08:00 | NUR ---
INITIAL ASSESSMENT: Patient is alert and oriented x3, he is a little unsure of the date and the president-he is easily reoriented. He reports a small amount of pain to his right lower ribs, he has one protruding a little farther than the rest -he states it happened after the first fall. CIWA is at 8, he intermittently has tremors. HRR, SR In the 70s blood pressure is a little elevated, he is agigtated. LS DIM in the bases, biox is 96% on RA. BT+. PPP. AM Meds given at this time, whole with a sip of water. He denies other needs at this time. Call light in reach. Bed alarm on for safety.
[2024-04-12 08:47] VITALS: BP 124/66
[2024-04-12] MEDS ORDERED: LORazepam 1 MG Tab PO PRN (09:45)
[2024-04-12] MEDS ORDERED: Acetaminophen 325 MG TABLET PO PRN (11:45)
--- NOTE | 2024-04-12 12:00 | NUR ---
Update: Patient has been resting comfortably. This morning he was abmulating with a steady gait, I gave him 50 mg librium for his withdrawls and since then he has been more somluent and less steady on his feet. The patient states "the librium doesn't work for me I don't know why I can't get the phenobarbitol." Clear boundaries were set with the patient regarding his withdrawls and where he is at in his stay, we will stick with oral alcohol withdrawl meds and DC all IV medications. When assessing his CIWA he is not tremulous unless asked directly about it, then his arms are very shaky, he is also mildly anxious. VSS. Patient denies other needs at this time, call light in reach. Bed alarm on for safety, sitter at bedside due to patients impulsivity and previous fall this stay.
[2024-04-12 14:55] VITALS: BP 113/77
[2024-04-12] MEDS ORDERED: Acetaminophen650 M1 PO ×2 (16:27)
[2024-04-12] MEDS ORDERED: ONDA4ODT MM ×2 (16:28)
[2024-04-12] MEDS ORDERED: Calcium Carbon500 MG PO ×2 (16:28)
[2024-04-12] MEDS ORDERED: SENNA LAXATIVE8.6 MG PO ×2 (16:29)
[2024-04-12 17:42] VITALS: BP 136/80
--- NOTE | 2024-04-12 18:06 | NUR ---
UPDATE: Patient CIWA 1, he has been more awake and alert ambulating around in the room. He has been waxing and waning on whether or not he wants to go to inpatient alcohol withdrawl cessation program. Dr. Marquez came back down to assess him again, it has been decided he is stable and ready for discharge. He has an intake appointment at [facility] at 8:30 am, the plan is to discharge him to his girlfriend Nancy's house and from there he will check into [facility]. Sitter is at the bedside, patient is waiting for Nancy in the chair. Will review discharge instructions with them when she arrives.
--- NOTE | 2024-04-12 19:42 | NUR ---
DISCHARGE NOTE WENT OVER EDUCATION AGAIN REGARDING MEDICATIONS WHEN SIGNIFICANT OTHER COLE ARRIVED TO UNIT. PT AND SIGNIFICANT OTHER COLE VERBALIZED UNDERSTANDING OF NEW MEDICATIONS AND EDUCATION REGARDING TAKING MED LIST TO INTAKE AT [facility] TOMORROW. IV AND TELE REMOVED PRIOR TO SHIFT CHANGE. PT AMBULATED TO WHEELCHAIR. TAKEN OUT VIA WHEELCHAIR BY ASHUTOSH WAKEFIELD. NO S/S OF DISTRESS NOTED AT TIME OF LEAVING UNIT.
== END 2024-04-12 19:35 | disposition home or self-care (01) | DRG 896 ==
LOC: ER 17:42 → ERHOLD 04-05 01:56 → PCU 04-05 01:56
PROVIDERS: Family Medicine; Internal Medicine; Student in an Organized Health Care Education/Training Program; ADMIT Student in an Organized Health Care Education/Training Program
DX: F10.239 Alcohol dependence with withdrawal, unspecified (principal); I21.4 Non-ST elevation (NSTEMI) myocardial infarction; S22.32XA Fracture of one rib, left side, initial encounter for closed fracture; I16.1 Hypertensive emergency; G40.509 Epileptic seizures related to external causes, not intractable, without status epilepticus; F11.23 Opioid dependence with withdrawal; I10 Essential (primary) hypertension; E03.9 Hypothyroidism, unspecified; F41.9 Anxiety disorder, unspecified; F32.A Depression, unspecified; R44.1 Visual hallucinations; W19.XXXA Unspecified fall, initial encounter; S43.51XA Sprain of right acromioclavicular joint, initial encounter; Z98.890 Other specified postprocedural states; Z79.899 Other long term (current) drug therapy; Z79.82 Long term (current) use of aspirin; Z79.890 Hormone replacement therapy; Z88.5 Allergy status to narcotic agent
CPT/HCPCS: 36415; 70450; 71046; 80048; 80053; 83735; 84100; 84484; 85025; 93005; 93010; 96374; 96375; 96376; 99285-25; A9270; J1650; J2060; J2560; J3475; J3480; J7030; J7050

== ENCOUNTER 2024-04-13 08:26 | Emergency (ER) | payer OTHER ==
[~2024-04-13] VITALS: Ht 182.9 cm; Wt 86.2 kg
[~2024-04-13 08:26] MED LIST changes: +Acetaminophen650 M1 PO; +Calcium Carbon500 MG PO; +ONDA4ODT MM; +SENNA LAXATIVE8.6 MG PO
[2024-04-13 11:36] LABS: BASOPHILS ABSOLUTE AUTO 0.08 K/mm3 (0.00-0.23); BASOPHILS PERCENT AUTO 1 % (0-2); EOSINOPHILS ABSOLUTE AUTO 0.34 K/mm3 (0.00-0.68); EOSINOPHILS PERCENT AUTO 4 % (0-6); Hemoglobin 15.6 g/dL (13.5-17.5); IMMATURE GRAN ABSOLUTE AUTO 0.03 K/mm3 (0.00-0.10); IMMATURE GRAN PERCENT AUTO 0 % (0-1); LYMPHOCYTES ABSOLUTE AUTO 0.95 K/mm3 (0.84-5.20); LYMPHOCYTES PERCENT AUTO 12 % (21-46); MONOCYTES ABSOLUTE AUTO 1.29 K/mm3 (0.16-1.47); MONOCYTES PERCENT AUTO 16 % (4-13); Mean Corpuscular HGB 32.4 pg (26.0-34.0); Mean Corpuscular HGB Conc 33.9 g/dL (31.5-36.5); Mean Corpuscular Volume 96 fL (80-100); Mean Platelet Volume 9.6 fL (9.1-12.4); NEUTROPHILS ABSOLUTE AUTO 5.34 K/mm3 (1.96-9.15); NEUTROPHILS PERCENT AUTO 67 % (41-73); Platelet Count 285 K/mm3 (150-400); RDW Coefficient Variation 14.3 % (11.7-14.2); RDW Standard Deviation 50.1 fL (35.1-46.3); Red Blood Cell Count 4.81 M/mm3 (4.30-5.90); White Blood Cell Count 8.03 K/mm3 (4.00-11.30)
[2024-04-13 12:10] LABS: Albumin, Blood 3.3 g/dL (3.4-5.0); Albumin/Globulin Ratio 0.9 (0.8-1.8); Bilirubin, Total 0.3 mg/dL (0.1-1.0); Calcium, Blood 9.6 mg/dL (8.5-10.1); Creatinine, Blood 1.09 mg/dL (0.60-1.20); Globulin, Blood 3.8 g/dL (2.2-4.0); Potassium, Blood 4.9 mmol/L (3.5-5.5); Total Protein, Blood 7.1 g/dL (6.4-8.2)
[2024-04-13] MEDS ORDERED: PHENobarbital Sodium 65MG / ML 1ML Vial IV ONE (14:40)
[2024-04-13 15:40] LABS: Ethanol (Alcohol), Blood, Med <3 mg/dL; Magnesium, Blood 2.5 mg/dL (1.6-2.4); Phosphorus, Blood 3.8 mg/dL (2.5-4.9)
[2024-04-13] MEDS ORDERED: Ibuprofen 600 MG Tab PO ONE (18:45)
== END 2024-04-13 19:01 | disposition home or self-care (01) ==
LOC: ER 08:26
PROVIDERS: Physician Assistant; Student in an Organized Health Care Education/Training Program
DX: F10.239 Alcohol dependence with withdrawal, unspecified (principal); R07.2 Precordial pain; I10 Essential (primary) hypertension; E03.9 Hypothyroidism, unspecified; Z88.5 Allergy status to narcotic agent; Z79.82 Long term (current) use of aspirin; Z79.890 Hormone replacement therapy; Z79.899 Other long term (current) drug therapy; Z59.00 Homelessness unspecified; Z59.89 Other problems related to housing and economic circumstances
CPT/HCPCS: 80053; 80320; 83690; 83735; 84100; 84484; 85025; 93005; 93010; 96374; 99285-25; A9270; J2560

== ENCOUNTER 2024-04-14 12:57 | Emergency (ER) | payer OTHER ==
[~2024-04-14] VITALS: Ht 182.9 cm; Wt 88.5 kg
[~2024-04-14 12:57] MED LIST changes: -CHLO25 PO
[2024-04-15] MEDS ORDERED: CHLO25 PO (13:55)
== END 2024-04-14 18:31 | disposition home or self-care (01) ==
LOC: ER 12:57
DX: F10.929 Alcohol use, unspecified with intoxication, unspecified (principal); E03.9 Hypothyroidism, unspecified; I10 Essential (primary) hypertension; I25.2 Old myocardial infarction; Z88.5 Allergy status to narcotic agent; Z79.82 Long term (current) use of aspirin; Z79.890 Hormone replacement therapy; Z79.899 Other long term (current) drug therapy
CPT/HCPCS: 71045

== ENCOUNTER → 2024-04-14 | Emergency (ER) | payer OTHER ==
[~2024-04-14] VITALS: Ht 182.9 cm; Wt 95.2 kg
[~2024-04-14] MED LIST changes: +CHLO25 PO
== END ==
LOC: ER 21:10
DX: F10.129 Alcohol abuse with intoxication, unspecified (principal); I10 Essential (primary) hypertension; Z88.5 Allergy status to narcotic agent; Z79.891 Long term (current) use of opiate analgesic; Z79.899 Other long term (current) drug therapy; Z79.82 Long term (current) use of aspirin; Z79.890 Hormone replacement therapy; Z79.02 Long term (current) use of antithrombotics/antiplatelets; Z79.1 Long term (current) use of non-steroidal anti-inflammatories (NSAID)
CPT/HCPCS: 99282

== ENCOUNTER 2024-04-15 08:20 | Emergency (ER) | payer OTHER ==
[~2024-04-15] VITALS: Ht 180.3 cm; Wt 74.8 kg
[2024-04-15] MEDS ORDERED: PHENobarbital Sodium 65MG / ML 1ML Vial IV ONE ×3 (08:40→12:40)
[2024-04-15] MEDS ORDERED: DULoxetine HCL 30 MG Cap DR PO ONE (11:05)
[2024-04-15] MEDS ORDERED: Buprenorphine HCL/Naloxone HCL 2-0.5MG 1 EA SL ONE ×3 (11:05→12:35)
[2024-04-15] MEDS ORDERED: CloNIDine 0.1 MG Tab PO ONE (11:05)
[2024-04-15] MEDS ORDERED: CHLO25 PO (13:55)
== END 2024-04-15 15:10 | disposition home or self-care (01) ==
LOC: ER 08:20
DX: R07.9 Chest pain, unspecified (principal); F10.939 Alcohol use, unspecified with withdrawal, unspecified; I10 Essential (primary) hypertension; E03.9 Hypothyroidism, unspecified; F17.210 Nicotine dependence, cigarettes, uncomplicated; Z88.5 Allergy status to narcotic agent; Z79.891 Long term (current) use of opiate analgesic; Z79.899 Other long term (current) drug therapy; Z79.82 Long term (current) use of aspirin; Z79.890 Hormone replacement therapy; Z79.02 Long term (current) use of antithrombotics/antiplatelets; Z79.1 Long term (current) use of non-steroidal anti-inflammatories (NSAID)
CPT/HCPCS: A9270; J0572; J2560

== ENCOUNTER 2024-04-16 14:56 | Emergency (ER) | payer OTHER ==
[~2024-04-16] VITALS: Ht 182.9 cm; Wt 88.5 kg
[~2024-04-16 14:56] MED LIST changes: +CHLO25 PO
[2024-04-16] MEDS ORDERED: Ondansetron HCl 2 MG / ML 2ML Vial IV ONE ×2 (15:20→17:55)
[2024-04-16] MEDS ORDERED: Folic Acid 1 MG TAB PO ONE ×2 (15:20→17:40)
[2024-04-16] MEDS ORDERED: Thiamine HCl 100 MG Tab PO ONE ×2 (15:20→17:40)
[2024-04-16 16:37] LABS: BASOPHILS ABSOLUTE AUTO 0.06 K/mm3 (0.00-0.23); BASOPHILS PERCENT AUTO 1 % (0-2); EOSINOPHILS ABSOLUTE AUTO 0.17 K/mm3 (0.00-0.68); EOSINOPHILS PERCENT AUTO 3 % (0-6); Hematocrit 43.4 % (37.0-53.0); IMMATURE GRAN ABSOLUTE AUTO 0.02 K/mm3 (0.00-0.10); IMMATURE GRAN PERCENT AUTO 0 % (0-1); LYMPHOCYTES ABSOLUTE AUTO 1.11 K/mm3 (0.84-5.20); LYMPHOCYTES PERCENT AUTO 18 % (21-46); MONOCYTES ABSOLUTE AUTO 0.45 K/mm3 (0.16-1.47); MONOCYTES PERCENT AUTO 7 % (4-13); Mean Corpuscular HGB 31.8 pg (26.0-34.0); Mean Corpuscular HGB Conc 34.6 g/dL (31.5-36.5); Mean Corpuscular Volume 92 fL (80-100); Mean Platelet Volume 8.7 fL (9.1-12.4); NEUTROPHILS ABSOLUTE AUTO 4.52 K/mm3 (1.96-9.15); NEUTROPHILS PERCENT AUTO 72 % (41-73); Platelet Count 440 K/mm3 (150-400); RDW Coefficient Variation 13.9 % (11.7-14.2); RDW Standard Deviation 47.3 fL (35.1-46.3); Red Blood Cell Count 4.72 M/mm3 (4.30-5.90); White Blood Cell Count 6.33 K/mm3 (4.00-11.30)
[2024-04-16 17:07] LABS: Albumin, Blood 3.5 g/dL (3.4-5.0); Albumin/Globulin Ratio 0.9 (0.8-1.8); Bilirubin, Total 0.2 mg/dL (0.1-1.0); Bun/Creatinine Ratio 14.6 (12.0-20.0); Calcium, Blood 8.7 mg/dL (8.5-10.1); Creatinine, Blood 0.96 mg/dL (0.60-1.20); Globulin, Blood 3.7 g/dL (2.2-4.0); Potassium, Blood 3.8 mmol/L (3.5-5.5); Total Protein, Blood 7.2 g/dL (6.4-8.2)
== END 2024-04-16 22:15 | disposition home or self-care (01) ==
LOC: ER 14:56
PROVIDERS: Emergency Medicine
DX: F10.10 Alcohol abuse, uncomplicated (principal); E03.9 Hypothyroidism, unspecified; I10 Essential (primary) hypertension; I25.2 Old myocardial infarction; F17.210 Nicotine dependence, cigarettes, uncomplicated; Z79.82 Long term (current) use of aspirin; Z79.899 Other long term (current) drug therapy; Z88.5 Allergy status to narcotic agent
CPT/HCPCS: 71045; 80053; 80320; 84484; 85025; A9270; J2405

== ENCOUNTER 2024-04-17 05:43 | Emergency (ER) | payer OTHER ==
[~2024-04-17] VITALS: Ht 182.9 cm; Wt 88.5 kg
== END 2024-04-17 06:10 | disposition left against medical advice (07) ==
LOC: ER 05:43
DX: F10.129 Alcohol abuse with intoxication, unspecified (principal); Z53.29 Procedure and treatment not carried out because of patient's decision for other reasons
CPT/HCPCS: 99282

== ENCOUNTER 2024-04-17 06:34 | Emergency (ER) | payer OTHER ==
[~2024-04-17] VITALS: Ht 182.9 cm; Wt 102.1 kg
== END 2024-04-17 11:45 | disposition home or self-care (01) ==
LOC: ER 06:34
DX: F10.129 Alcohol abuse with intoxication, unspecified (principal); E03.9 Hypothyroidism, unspecified; I10 Essential (primary) hypertension; F17.210 Nicotine dependence, cigarettes, uncomplicated; Z79.899 Other long term (current) drug therapy; Z79.82 Long term (current) use of aspirin; Z88.5 Allergy status to narcotic agent
CPT/HCPCS: 99284

== ENCOUNTER 2024-04-17 12:49 | Emergency (ER) | payer OTHER ==
[~2024-04-17] VITALS: Ht 182.9 cm; Wt 90.7 kg
== END 2024-04-17 13:05 | disposition home or self-care (01) ==
LOC: ER 12:49
DX: F10.929 Alcohol use, unspecified with intoxication, unspecified (principal); E03.9 Hypothyroidism, unspecified; I10 Essential (primary) hypertension; I25.2 Old myocardial infarction; F17.210 Nicotine dependence, cigarettes, uncomplicated; Z88.5 Allergy status to narcotic agent; Z79.899 Other long term (current) drug therapy; Z79.82 Long term (current) use of aspirin
CPT/HCPCS: 99282

== ENCOUNTER 2024-04-23 15:59 | Emergency (ER) | payer OTHER ==
[~2024-04-23] VITALS: Ht 182.9 cm; Wt 86.2 kg
[2024-04-23 16:59] LABS: BASOPHILS ABSOLUTE AUTO 0.09 K/mm3 (0.00-0.23); BASOPHILS PERCENT AUTO 1 % (0-2); EOSINOPHILS ABSOLUTE AUTO 0.19 K/mm3 (0.00-0.68); EOSINOPHILS PERCENT AUTO 2 % (0-6); Hematocrit 42.4 % (37.0-53.0); Hemoglobin 15.3 g/dL (13.5-17.5); IMMATURE GRAN ABSOLUTE AUTO 0.02 K/mm3 (0.00-0.10); IMMATURE GRAN PERCENT AUTO 0 % (0-1); LYMPHOCYTES ABSOLUTE AUTO 1.62 K/mm3 (0.84-5.20); LYMPHOCYTES PERCENT AUTO 21 % (21-46); MONOCYTES ABSOLUTE AUTO 0.56 K/mm3 (0.16-1.47); MONOCYTES PERCENT AUTO 7 % (4-13); Mean Corpuscular HGB 32.5 pg (26.0-34.0); Mean Corpuscular HGB Conc 36.1 g/dL (31.5-36.5); Mean Corpuscular Volume 90 fL (80-100); Mean Platelet Volume 9.2 fL (9.1-12.4); NEUTROPHILS ABSOLUTE AUTO 5.34 K/mm3 (1.96-9.15); NEUTROPHILS PERCENT AUTO 68 % (41-73); Platelet Count 468 K/mm3 (150-400); RDW Coefficient Variation 13.5 % (11.7-14.2); RDW Standard Deviation 44.9 fL (35.1-46.3); Red Blood Cell Count 4.71 M/mm3 (4.30-5.90); White Blood Cell Count 7.82 K/mm3 (4.00-11.30)
[2024-04-23] MEDS ORDERED: PHENobarbital Sodium 65MG / ML 1ML Vial IV ONE (17:00)
[2024-04-23 17:24] LABS: Albumin, Blood 3.6 g/dL (3.4-5.0); Albumin/Globulin Ratio 1.1 (0.8-1.8); Bilirubin, Total 0.3 mg/dL (0.1-1.0); Bun/Creatinine Ratio 13.4 (12.0-20.0); Calcium, Blood 8.9 mg/dL (8.5-10.1); Creatinine, Blood 1.12 mg/dL (0.60-1.20); Globulin, Blood 3.2 g/dL (2.2-4.0); Potassium, Blood 3.6 mmol/L (3.5-5.5); Total Protein, Blood 6.8 g/dL (6.4-8.2)
[2024-04-23] MEDS ORDERED: NS 1,000 ML IV SCH (18:55)
[2024-04-23] MEDS ORDERED: ChlordiazePOXIDE 25 MG Cap PO ONE (20:00)
== END 2024-04-23 20:16 | disposition home or self-care (01) ==
LOC: ER 15:59
PROVIDERS: Student in an Organized Health Care Education/Training Program
DX: F10.90 Alcohol use, unspecified, uncomplicated (principal); I10 Essential (primary) hypertension; F17.210 Nicotine dependence, cigarettes, uncomplicated; Y90.3 Blood alcohol level of 60-79 mg/100 ml; Z88.5 Allergy status to narcotic agent; Z79.01 Long term (current) use of anticoagulants; Z79.1 Long term (current) use of non-steroidal anti-inflammatories (NSAID); Z79.02 Long term (current) use of antithrombotics/antiplatelets; Z79.899 Other long term (current) drug therapy
CPT/HCPCS: 71046; 80053; 80320; 84484; 85025; 93005; 93010; 96374; 99285-25; J2560